=== PATIENT | female | born 1990 | race Caucasian/White ===

== ENCOUNTER 2017-02-23 12:32 | Inpatient (IN) | payer OTHER ==
[2017-02-23] MEDS ORDERED: ROCEPHIN 1 GM in SODIUM CHLORIDE 50 ML IV STA (12:49)
[2017-02-23] MEDS ORDERED: SODIUM CHLORIDE 1,000 ML IV STA (12:49)
[2017-02-23] MEDS ORDERED: SOLU-MEDROL 40 MG IVP STA (12:49)
[2017-02-23] MEDS ORDERED: DUONEB NEB STA (12:49)
[2017-02-23 13:09] LABS: BASOPHILS % (AUTO) 0.4 % (0.0-3.0); EOSINOPHILS # (AUTO) 0.1 K/ul (0.0-0.7); HEMATOCRIT 41.1 % (37.0-47.0); HEMOGLOBIN 14.1 g/dl (12.0-16.0); IMMATURE GRANULOCYTE % (AUTO) 0.4 % (0.0-5.0); LYMPHOCYTES # (AUTO) 1.4 K/uL (0.60-3.4); MEAN CORPUSCULAR HEMOGLOBIN 31.4 pg (27.0-31.0); MEAN CORPUSCULAR HGB CONC 34.3 (31.8-35.4); MEAN CORPUSCULAR VOLUME 91.5 fl (81.0-99.0); MONOCYTES # (AUTO) 0.9 K/uL (0.4-2.0); MONOCYTES % (AUTO) 9.8 (0-10); NEUTROPHILS # (AUTO) 7.1 K/ul (2.0-6.9); NEUTROPHILS % (AUTO) 73.4; PLATELET COUNT 269 10^3/uL (140-440); RED BLOOD COUNT 4.49 10^6/ul (4.20-5.40); WHITE BLOOD COUNT 9.61 K/ul (4.6-10.2)
[2017-02-23] MEDS ORDERED: ROCEPHIN ONE (13:22)
[2017-02-23 13:28] LABS: SERUM PREGNANCY INTERNAL QC INTERNAL QC VALID
[2017-02-23 13:29] LABS: ALBUMIN/GLOBULIN RATIO 1.05; ANION GAP 20.2; BILIRUBIN,TOTAL 0.35 mg/dL (0.00-1.20); BUN/CREATININE RATIO 15.18; CALCIUM 9.4 mg/dL (8.2-10.2); CREATININE 0.79 mg/dL (0.60-1.30); POTASSIUM 4.2 mmol/L (3.5-5.10); TOTAL PROTEIN 7.8 g/dL (6.4-8.2)
--- NOTE | 2017-02-23 14:12 | CT ---
Exam: CT of the chest without intravenous contrast. 3-D MIP reformats were provided for interpreta tion. Comparison: None available. Reason for exam: Productive cough and right chest wall pain. FINDINGS: Image interpretation is limited by the lack of intravenous contrast administration. No pneumothorax or pleural effusion. The heart is not enlarged. The aorta is normal in course and caliber. Patchy airspace opacities. Air bronchograms are seen in the left lower lobe on coronal image 45 and 56. 4 mm nodule in the left lower lobe seen on axial image number 44. No suspicious appearing osteoblastic or osteolytic lesions. No acute fracture or listhesis. Impression: 1. Patchy airspace opacities with air bronchograms in the left lower lobe likely pneumonia and / or atelectasis. 2. 4 mm left lower lobe pulmonary nodule. Recommend follow-up CT evaluation to document resolution of the nodular and consolidative airspace opacities. Report faxed at [id number] hours on 02/23/2017.
--- NOTE | 2017-02-23 14:23 | ED.PDOC ---
General ED Provider: Dr. EBONY BERGER-ER Chief Complaint: Chest Wall Injury/Pain Stated Complaint: im coughing and i dont think im over the pneumonia--im coughing up thick yellow stuff...my ribs hurt from coughing ...im breast feeding Time Seen by Physician: 12:35 Mode of Arrival: Walk-In Information Source: Patient, Family Exam Limitations: No limitations Primary Care Provider: JANET MARTI Nursing and Triage Documentation Reviewed and Agree: Yes Respiratory Complaint Exam - Respiratory Complaint/Exam Onset/Duration: 2 weks Symptoms Are: Still present Timing: Constant Initial Severity: Mild Current Severity: Mild Location: Chest Character: Reports: Productive cough Alleviating: Reports: None Associated Signs and Symptoms: Reports: URI. Denies: Rapid breathing, Dyspnea, Fever, Chills, Chest pain, Pleuritic chest pain, Wheezing, Hemoptysis, Dizziness , Calf pain, Calf swelling, Edema, Nasal congestion, Hoarseness, Sinus discomfort, Vomiting, Sore throat, Weight loss, Decreased oral intake, Increased thirst, Increased appetite, Increased urination History of Healthcare-Acquired Pneumonia: No Related Surgical History: Reports: None Pulmonary Embolism Risk Factors: None Cardiac Risk Factors: Reports: None Pseudomonas Risk Factors: Reports: None Tuberculosis Risk Factors: Reports: None Status Asthmaticus Risk Factors: Reports: None Home Oxygen Use: No Recent Stress Test: No Recent Echo/LV Function: No Current Antibiotic Use: Yes Current Asthma Medication Use: No Respiratory Distress: None Inadequate Respiratory Effort: No Dysphagia Present: No Stridor Present: No JVD Present: No Accessory Muscle Use: No Retractions: Not Present Diminished Breath Sounds: No Sinus Tenderness: None Grunting Respirations: No Kussmaul Respirations: No Differential Diagnoses: Pneumonia, Bronchitis Review of Systems - Review Of Systems Constitutional: Reports: No symptoms Eyes: Reports: No symptoms Ears, Nose, Mouth, Throat: Reports: No symptoms Respiratory: Reports: Cough Cardiac: Reports: No symptoms GI: Reports: No symptoms : Reports: No symptoms Musculoskeletal: Reports: No symptoms Skin: Reports: No symptoms Neurological: Reports: No symptoms Endocrine: Reports: No symptoms Hematologic/Lymphatic: Reports: No symptoms All Other Systems: Reviewed and Negative Past Medical History - Past Medical History Previously Healthy: Yes Endocrine: Reports: None Cardiovascular: Reports: None Respiratory: Reports: None Hematological: Reports: None Gastrointestinal: Reports: None Genitourinary: Reports: None Neuro/Psych: Reports: Migraine Musculoskeletal: Reports: None Cancer: Reports: None Last Menstrual Period: december 2015 - Surgical History General Surgical History: Reports: Unknown - Family History Family History: Reports: Unknown - Social History Smoking Status: Former smoker Hx Substance Use: No Alcohol Screening: Occasionally Physical Exam - Physical Exam Appearance: Well-appearing, No pain distress, Well-nourished Eyes: DAIJA, EOMI, Conjunctiva clear ENT: Ears normal, Nose normal, Oropharynx normal Neck: Supple Respiratory: Crackles, Rhonchi Cardiovascular: RRR, Pulses normal, No rub, No murmur GI/: Soft Musculoskeletal: Normal strength, ROM intact, No edema, No calf tenderness Skin: Warm Neurological: Sensation intact, Motor intact, Reflexes intact, Cranial nerves intact, Alert, Oriented Psychiatric: Affect appropriate Interpretation - Radiology Interpretation Radiology Interpretation By: Radiologist Radiology Results: Positive Exam Interpreted: CT Scan Physician Notification - Case Discussed Physician Notified: dr marti Time of Notification: 14:23 Critical Care Note - Critical Care Note Total Time (mins): 0 Course - Course Hematology/Chemistry: 02/23/17 13:00 02/23/17 13:00 Orders, Labs, Meds: Lab Review 02/23/17 13:00 WBC 9.61 RBC 4.49 Hgb 14.1 Hct 41.1 MCV 91.5 MCH 31.4 H MCHC 34.3 RDW Coeff of Amy 12.6 Plt Count 269 Immature Gran % (Auto) 0.4 Neut % (Auto) 73.4 Lymph % (Auto) 15.0 [place] % (Auto) 9.8 Eos % (Auto) 1.0 Baso % (Auto) 0.4 Immature Gran # (Auto) 0.0 Neut # 7.1 H Lymph # 1.4 [place] # 0.9 Eos # 0.1 Baso # 0.0 D-Dimer (Manual) 380.91 Sodium 144 Potassium 4.2 Chloride 106 Carbon Dioxide 22 Anion Gap 20.2 BUN 12 Creatinine 0.79 Estimated GFR (MDRD) 87.00 BUN/Creatinine Ratio 15.18 Glucose 78 Calcium 9.4 Total Bilirubin 0.35 AST 232 H ALT 212 H Alkaline Phosphatase 166 H Total Protein 7.8 Albumin 4.0 Globulin 3.8 Albumin/Globulin Ratio 1.05 Serum , Qual Negative Orders Category Date Time Status NEBULIZER TREATMENT Stat CARDIO 02/23/17 12:49 Completed ED IV/MEDIPORT/POWERPORT .ONCE EMERGENCY 02/23/17 12:49 Active BLOOD CULTURE Stat LAB 02/23/17 13:00 Received CBC W/ AUTO DIFF Stat LAB 02/23/17 13:00 Completed COMPREHENSIVE METABOLIC PANEL Stat LAB 02/23/17 13:00 Completed D-DIMER Stat LAB 02/23/17 13:00 Completed SERUM Stat LAB 02/23/17 13:00 Completed 0.9 % Sodium Chloride [Saline Flush] MEDS 02/23/17 12:49 Active 1 syr IVF PRN PRN Ceftriaxone Sodium [Rocephin] MEDS 02/23/17 13:22 Discontinued 1 gm .ROUTE .STK-MED ONE Ceftriaxone Sodium [Rocephin] 1 gm MEDS 02/23/17 12:49 Discontinued 0.9 % Sodium Chloride [Sodium Chloride] 50 ml IV ONCE Ipratropium/Albuterol Neb [Duoneb] MEDS 02/23/17 12:49 Discontinued 1 vial NEB ONCE STA Methylprednisolone Sod Succ/Pf [Solu-Medrol 40 mg] MEDS 02/23/17 12:49 Discontinued 40 mg IVP ONCE STA Sodium Chloride 0.9% [Sodium Chloride] 1,000 ml MEDS 02/23/17 12:49 Active IV 100 mls/hr CT CHEST W/O CONTRAST Stat RADS 02/23/17 12:50 Completed Medications Generic Name Dose Route Start Last Admin Trade Name Freq PRN Reason Stop Dose Admin Sodium Chloride 1,000 mls @ 100 mls/hr 02/23/17 12:49 02/23/17 13:46 Sodium Chloride IV 02/23/17 22:48 100 mls/hr .Q10H STA Administration Sodium Chloride 1 syr 02/23/17 12:49 02/23/17 13:38 Saline Flush IVF 1 syr PRN PRN Administration To flush IV Discontinued Medications Generic Name Dose Route Start Last Admin Trade Name Freq PRN Reason Stop Dose Admin Albuterol/Ipratropium 1 vial 02/23/17 12:49 02/23/17 13:25 Duoneb NEB 02/23/17 12:50 1 vial ONCE STA Administration Ceftriaxone Sodium 1 gm/ 50 mls @ 75 mls/hr 02/23/17 12:49 02/23/17 13:46 Sodium Chloride IV 02/23/17 13:28 75 mls/hr ONCE STA Administration Methylprednisolone Sodium Succinate 40 mg 02/23/17 12:49 02/23/17 13:37 Solu-Medrol 40 Mg IVP 02/23/17 12:50 40 mg ONCE STA Administration Vital Signs: Temp Pulse Resp BP Pulse Ox 02/23/17 12:33 98.8 F 104 H 20 117/68 98 Departure - Departure Time of Disposition: 14:23 Disposition: ADMITTED INPATIENT Discharge Problem: Pneumonia Qualifiers: Pneumonia type: due to unspecified organism Laterality: left Lung location: unspecified part of lung Qualifier Code: (J18.9) Pneumonia, unspecified organism Instructions: Pneumonitis (ED) Condition: Good Pt referred to PMD for follow-up: Yes Allergies/Adverse Reactions: Allergies codeine phosphate [From Tylenol-Codeine #3] Adverse Reaction (Verified 02/23/17 12:40) Home Medications: Ambulatory Orders Sertraline HCl [Zoloft] 50 mg PO DIRECTED 02/23/17 Disposition Discussed With: Patient, Family
[2017-02-23] MEDS ORDERED: NORCO 5-325 PO PRN (14:27)
[2017-02-23] MEDS ORDERED: TYLENOL PO PRN (14:28)
[2017-02-23 15:25] VITALS: BMI 27.4
[2017-02-23] MEDS: ZITHROMAX 500 MG in SODIUM CHLORIDE 250 ML IV SCH (16:28)
[2017-02-23] MEDS: XOPENEX 0.63 MG NEB SCH ×2 (17:00→23:09)
[2017-02-23] MEDS ORDERED: ULTRAM PO PRN (18:27)
[2017-02-23] MEDS ORDERED: SOLU-MEDROL 40 MG IVP SCH (21:00)
[2017-02-23] MEDS: ZOLOFT PO SCH (21:22)
[2017-02-23] MEDS ORDERED: ULTRAM ONE (21:30)
[2017-02-23] MEDS ORDERED: TORADOL IVP STA (22:08)
[2017-02-24] MEDS: SODIUM CHLORIDE 1,000 ML IV SCH ×4 (02:08→20:19)
[2017-02-24] MEDS: XOPENEX 0.63 MG NEB SCH ×4 (05:13→23:06)
[2017-02-24 05:21] LABS: BASOPHILS % (AUTO) 0.1 % (0.0-3.0); HEMATOCRIT 36.9 % (37.0-47.0); HEMOGLOBIN 12.6 g/dl (12.0-16.0); IMMATURE GRANULOCYTE % (AUTO) 0.9 % (0.0-5.0); LYMPHOCYTES # (AUTO) 0.8 K/uL (0.60-3.4); MEAN CORPUSCULAR HEMOGLOBIN 31.6 pg (27.0-31.0); MEAN CORPUSCULAR HGB CONC 34.1 (31.8-35.4); MEAN CORPUSCULAR VOLUME 92.5 fl (81.0-99.0); MONOCYTES # (AUTO) 0.3 K/uL (0.4-2.0); NEUTROPHILS # (AUTO) 9.2 K/ul (2.0-6.9); PLATELET COUNT 250 10^3/uL (140-440); RED BLOOD COUNT 3.99 10^6/ul (4.20-5.40); WHITE BLOOD COUNT 10.47 K/ul (4.6-10.2)
[2017-02-24 05:45] LABS: ALBUMIN 3.7 g/dL (3.4-5.0); ALBUMIN/GLOBULIN RATIO 1.06; BILIRUBIN,TOTAL 0.4 mg/dL (0.00-1.20); BUN/CREATININE RATIO 14.06; CALCIUM 8.9 mg/dL (8.2-10.2); CREATININE 0.64 mg/dL (0.60-1.30); TOTAL PROTEIN 7.2 g/dL (6.4-8.2)
[2017-02-24] MEDS ORDERED: SOLU-MEDROL 40 MG IVP SCH (08:16)
[2017-02-24] MEDS: ROCEPHIN 1 GM in SODIUM CHLORIDE 50 ML IV SCH (08:40)
[2017-02-24] MEDS ORDERED: ZOLOFT PO SCH (09:00)
--- NOTE | 2017-02-24 09:31 | PN ---
DATE OF SERVICE: 02/23/17 The patient was seen in the room 115. The was present. REASON FOR HOSPITALIZATION: Pneumonia. HISTORY OF PRESENT ILLNESS: 26-year-old white female came to the emergency room with cough and congestion, shortness of breath, pleuritic type of pain, left-sided. The patient was seen and examined in the ER by ER attending and CT scan of the chest revealed pneumonia on the left lower lobe. The patient is being treated for acute bronchitis and pneumonitis for the past several weeks as an outpatient with some improvement. The patient's condition deteriorated. REVIEW OF SYSTEMS: CONSTITUTIONAL: No night sweats. No fatigue, malaise, lethargy. No fever or chills. HEENT: Eyes: No visual changes. No eye pain. No eye discharge. ENT: No runny nose. No epistaxis. No sinus pain. No sore throat. No odynophagia. No congestion. RESPIRATORY: Cough and congestion. No hemoptysis. CARDIOVASCULAR: No angina symptoms. No CHF symptoms. Left-sided pleuritic pain. No atypical chest pain for CAD. No palpitations. Shortness of breath. GASTROINTESTINAL: No abdominal pain. No nausea or vomiting. No diarrhea or constipation. No hematemesis. No hematochezia. GENITOURINARY: No urgency. No frequency. No dysuria. No hematuria. No obstructive symptoms. No discharge. No pain. No significant abnormal bleeding. MUSCULOSKELETAL: No musculoskeletal pain; no joint swelling. NEUROLOGICAL: No headache. No neck pain. No syncope. No seizures. No dizziness. PSYCHIATRIC: Not anxious. No depression. No suicidal thoughts. No homicidal thoughts. SKIN: No rash. No lesions. No wounds. ENDOCRINE: No unexplained weight loss. No weight gain. HEMATOLOGIC/LYMPHATIC: No anemia. No purpura. No petechiae. No prolonged or excessive bleeding. No palpable lymph nodes. PHYSICAL EXAMINATION: GENERAL: The patient is oriented to time, place and person. VITAL SIGNS: Temperature 98.8, pulse 104, respiratory rate 20, BP 117/68, pulse ox 98%. HEENT: Head normocephalic, atraumatic. Eyes: Extraocular muscles are intact. Pupils are equal, round and reactive to light and accommodation. Ears: No lesions. Nose appeared normal. Throat: No exudate or erythema. NECK: Supple. No JVD, no carotid bruit. No lymphadenopathy or thyromegaly. LUNGS: Decreased breath sounds with mild wheeze lower lobes. Percussion note normal. Chest symmetrical. HEART: S1, S2, no S3. No murmurs. No cyanosis or clubbing. No ascites. Pulses: Dorsalis pedis and posterior tibial pulses +1 to +2 both sides. ABDOMEN: Soft. Nontender. Bowel sounds active. No CVA tenderness. No mass felt. EXTREMITIES: No edema. Full range of motion of all extremities, equal. NEUROLOGIC: No focal deficit. Cranial nerves II through XII are grossly intact. No headache, no double vision or headache. SKIN: Not dry. Intact. Turgor - normal. LYMPHATIC: No palpable lymph nodes/no lymphedema. MUSCULOSKELETAL: Normal joints with no swelling. Muscle tone is normal. ASSESSMENT: 1. PNEUMONIA, LEFT-SIDED 2. LEFT-SIDED PLEURITIC PAIN 3. SMOKING PLAN: 1. IV antibiotics, Rocephin and Zithromax, IV fluids 2. The patient has 4 mm left lower lobe pulmonary nodule. Explained about this and would be followed as an outpatient. 3. The patient is so will have to be careful about medications. TIME SPENT: More than 30 minutes. CONDITION: Stable. Plan and coordination of the patient's care discussed in the presence of nurse. REESE
[2017-02-24] MEDS: ZITHROMAX 500 MG in SODIUM CHLORIDE 250 ML IV SCH (10:14)
--- NOTE | 2017-02-24 10:17 | PCM.PROG ---
Attending Provider: ATTENDING PROVIDER: Dr. JANET TIRADO DATE OF SERVICE: 02/24/17 SUBJECTIVE: This 26 year old WHITE/ F was hospitalized 02/23/17. The patient is seen with Chelsea, Nurse Practitioner. The patient is alert, lying in bed. The child is in the room with the patient. The patient is coughing with productive cough. No fever. The patient has elevated liver enzymes, will do ultrasound. REVIEW OF SYSTEMS: CONSTITUTIONAL: No night sweats. No fatigue, malaise, lethargy. No fever or chills. HEENT: Eyes: No visual changes. No eye pain. No eye discharge. ENT: No runny nose. No epistaxis. No sinus pain. No odynophagia. No congestion. RESPIRATORY: Cough, productive. No hemoptysis. CARDIOVASCULAR: No angina symptoms. No CHF symptoms. No atypical chest pain for CAD. No palpitations. No shortness of breath. GASTROINTESTINAL: No abdominal pain. No nausea or vomiting. No diarrhea or constipation. No hematemesis. No hematochezia. GENITOURINARY: No urgency. No frequency. No dysuria. No hematuria. No obstructive symptoms. No discharge. No pain. No significant abnormal bleeding. MUSCULOSKELETAL: No musculoskeletal pain; no joint swelling. NEUROLOGICAL: Awake, alert, oriented to time, place and person. No headache. No neck pain. No syncope. No seizures. No dizziness. PSYCHIATRIC: Not anxious. No depression. No suicidal thoughts. No homicidal thoughts. SKIN: No rash. No lesions. No wounds. ENDOCRINE: No unexplained weight loss. No weight gain. HEMATOLOGIC/LYMPHATIC: No anemia. No purpura. No petechiae. No prolonged or excessive bleeding. No palpable lymph nodes. PHYSICAL EXAMINATION: GENERAL: The patient is awake, alert and oriented, sitting in bed in no distress. VITAL SIGNS: Temperature 98.3 F, Pulse 84, Respiratory Rate 16, BP 101/61, Pulse Ox 96% HEENT: Head normocephalic, atraumatic. Eyes: Extraocular muscles are intact. Pupils are equal, round and reactive to light and accommodation. Ears: No lesions. Nose appeared normal. Throat: No exudate or erythema. NECK: Supple. No JVD, no carotid bruit. No lymphadenopathy or thyromegaly. LUNGS: Decreased lung sounds left lower lobe. Percussion note normal. Chest symmetrical. HEART: S1, S2, no S3. No murmurs. No cyanosis or clubbing. No ascites. Pulses: Dorsalis pedis and posterior tibial pulses +1 to +2 both sides. ABDOMEN: Soft. Non-tender. Bowel sounds active. No CVA tenderness. No mass felt. EXTREMITIES: No edema. Full range of motion of all extremities, equal. NEUROLOGIC: No focal deficit. Cranial nerves II through XII are grossly intact. No headache, no double vision or headache. SKIN: Not dry. Intact. Turgor-normal. LYMPHATIC: No palpable lymph nodes/no lymphedema. MUSCULOSKELETAL: Normal joints with no swelling. Muscle tone is normal. LAB REVIEW: 02/24/17 05:00 02/24/17 05:00 02/24/17 05:00: WBC 10.47 H, RBC 3.99 L, Hgb 12.6, Hct 36.9 L, MCV 92.5, MCH 31.6 H, MCHC 34.1, RDW Coeff of Amy 12.5, Plt Count 250, Immature Gran % (Auto) 0.9, Neut % (Auto) 88.0, Lymph % (Auto) 8.0 L, [place] % (Auto) 3.0, Eos % (Auto) 0.0, Baso % (Auto) 0.1, Immature Gran # (Auto) 0.1, Neut # 9.2 H, Lymph # 0.8, [place] # 0.3 L, Eos # 0.0, Baso # 0.0, Sodium 141, Potassium 4.0, Chloride 109 H, Carbon Dioxide 19 L, Anion Gap 17.0, BUN 9, Creatinine 0.64, Estimated GFR (MDRD ) 110.00, BUN/Creatinine Ratio 14.06, Glucose 117 H, Calcium 8.9, Total Bilirubin 0.40, AST 123 H D, ALT 191 H, Alkaline Phosphatase 151 H, Total Protein 7.2, Albumin 3.7, Globulin 3.5, Albumin/Globulin Ratio 1.06 ASSESSMENT: 1. Left lower lobe pneumonia 2. Elevated liver function PLAN: 1. Ultrasound right upper quadrant and liver 2. Switch to p.o. Prednisone 10 mg p.o. b.i..d. after IV Solu-Medrol today due to breast feeding. 3. Safety of medications with breast feeding reviewed and discussed in detail with the patient. The patient voiced understanding and is in agreement. Plan and coordination of the patient's care discussed in the presence of Special Education Teaching Assistant and nurse. CONDITION: Stable SCRIBED BY: TAHIRA SAHA Aircraft Engine Dismantler scribed while in presence of service performed by Dr. JANET TIRADO/CHELSEA FIGUEROA APRN on 02/24/17 ([id number])
[2017-02-24] MEDS: ZOLOFT PO SCH ×2 (11:35→20:15)
[2017-02-24] MEDS: NORCO 5-325 PO PRN ×2 (12:17→18:00)
--- NOTE | 2017-02-24 12:53 | US ---
EXAM: Abdominal ultrasound limited HISTORY: Elevated transaminase COMPARISON: None TECHNIQUE: Sonographic and limited Doppler evaluation of the right upper quadrant was performed. FINDINGS: The liver is normal in echogenicity and measures 14.8 cm. The portal vein is patent. Th e gallbladder demonstrates no stones or sludge. The gallbladder wall measures 0.2 cm in thickness. Common bile duct is unremarkable and measures 0.3 cm in diameter. The pancreas is unremarkable in a ppearance. The right kidney measures 9.8 x 4.3 x 4.6 cm with cortical thickness of 1.2 cm. IMPRESSION: No acute intra-abdominal abnormality to account for patient's symptoms.
[2017-02-24] MEDS: PREDNISONE PO SCH (18:00)
[2017-02-25] MEDS: XOPENEX 0.63 MG NEB SCH ×2 (05:15→11:14)
[2017-02-25 05:21] LABS: BASOPHILS % (AUTO) 0.3 % (0.0-3.0); HEMATOCRIT 36.6 % (37.0-47.0); IMMATURE GRANULOCYTE % (AUTO) 0.6 % (0.0-5.0); LYMPHOCYTES # (AUTO) 1.9 K/uL (0.60-3.4); LYMPHOCYTES % (AUTO) 16.2 (10.0-50.0); MEAN CORPUSCULAR HEMOGLOBIN 31.3 pg (27.0-31.0); MEAN CORPUSCULAR HGB CONC 32.8 (31.8-35.4); MEAN CORPUSCULAR VOLUME 95.6 fl (81.0-99.0); MONOCYTES # (AUTO) 0.8 K/uL (0.4-2.0); MONOCYTES % (AUTO) 6.6 (0-10); NEUTROPHILS # (AUTO) 9.1 K/ul (2.0-6.9); NEUTROPHILS % (AUTO) 76.3; PLATELET COUNT 235 10^3/uL (140-440); RED BLOOD COUNT 3.83 10^6/ul (4.20-5.40); WHITE BLOOD COUNT 11.88 K/ul (4.6-10.2)
[2017-02-25 05:47] LABS: ALBUMIN 3.6 g/dL (3.4-5.0); ALBUMIN/GLOBULIN RATIO 1.16; ANION GAP 16.2; BILIRUBIN,TOTAL 0.34 mg/dL (0.00-1.20); BUN/CREATININE RATIO 13.23; CREATININE 0.68 mg/dL (0.60-1.30); POTASSIUM 4.2 mmol/L (3.5-5.10); TOTAL PROTEIN 6.7 g/dL (6.4-8.2)
[2017-02-25] MEDS: NORCO 5-325 PO PRN (07:56)
[2017-02-25] MEDS: ROCEPHIN 1 GM in SODIUM CHLORIDE 50 ML IV SCH (08:19)
[2017-02-25] MEDS: PREDNISONE PO SCH (08:20)
[2017-02-25] MEDS: ZOLOFT PO SCH (08:20)
[2017-02-25] MEDS: ZITHROMAX 500 MG in SODIUM CHLORIDE 250 ML IV SCH (09:33)
--- NOTE | 2017-02-25 09:37 | PCM.PROG ---
Attending Provider: ATTENDING PROVIDER: Dr. JANET TIRADO DATE OF SERVICE: 02/25/17 SUBJECTIVE: This 26 year old WHITE/ F was hospitalized 02/23/17. The patient is seen with Chelsea, Nurse Practitioner. She is alert, lying in bed coughing less. No fever. She has been eating well. She states she is ready to go home. REVIEW OF SYSTEMS: CONSTITUTIONAL: No night sweats. No fatigue, malaise, lethargy. No fever or chills. HEENT: Eyes: No visual changes. No eye pain. No eye discharge. ENT: No runny nose. No epistaxis. No sinus pain. No odynophagia. No congestion. RESPIRATORY: Positive for cough. No congestion. No hemoptysis. CARDIOVASCULAR: No angina symptoms. No CHF symptoms. No atypical chest pain for CAD. No palpitations. No shortness of breath. GASTROINTESTINAL: No abdominal pain. No nausea or vomiting. No diarrhea or constipation. No hematemesis. No hematochezia. GENITOURINARY: No urgency. No frequency. No dysuria. No hematuria. No obstructive symptoms. No discharge. No pain. No significant abnormal bleeding. MUSCULOSKELETAL: No musculoskeletal pain; no joint swelling. NEUROLOGICAL: Awake, alert, oriented to time, place and person. No headache. No neck pain. No syncope. No seizures. No dizziness. PSYCHIATRIC: Not anxious. No depression. No suicidal thoughts. No homicidal thoughts. SKIN: No rash. No lesions. No wounds. ENDOCRINE: No unexplained weight loss. No weight gain. HEMATOLOGIC/LYMPHATIC: No anemia. No purpura. No petechiae. No prolonged or excessive bleeding. No palpable lymph nodes. PHYSICAL EXAMINATION: GENERAL: The patient is awake, alert and oriented, lying in bed in no distress. VITAL SIGNS: Temperature 97.7 F, Pulse 62, Respiratory Rate 16, BP 107/69, Pulse Ox 98% HEENT: Head normocephalic, atraumatic. Eyes: Extraocular muscles are intact. Pupils are equal, round and reactive to light and accommodation. Ears: No lesions. Nose appeared normal. Throat: No exudate or erythema. NECK: Supple. No JVD, no carotid bruit. No lymphadenopathy or thyromegaly. LUNGS: Diminished breath sounds left lower lobe. Percussion note normal. Chest symmetrical. HEART: S1, S2, no S3. No murmurs. No cyanosis or clubbing. No ascites. Pulses: Dorsalis pedis and posterior tibial pulses +1 to +2 both sides. ABDOMEN: Soft. Non-tender. Bowel sounds active. No CVA tenderness. No mass felt. EXTREMITIES: No edema. Full range of motion of all extremities, equal. NEUROLOGIC: No focal deficit. Cranial nerves II through XII are grossly intact. No headache, no double vision or headache. SKIN: Not dry. Intact. Turgor-normal. LYMPHATIC: No palpable lymph nodes/no lymphedema. MUSCULOSKELETAL: Normal joints with no swelling. Muscle tone is normal. LAB REVIEW: 02/25/17 04:10 02/25/17 04:10 02/25/17 04:10: WBC 11.88 H, RBC 3.83 L, Hgb 12.0, Hct 36.6 L, MCV 95.6, MCH 31.3 H, MCHC 32.8, RDW Coeff of Amy 12.9, Plt Count 235, Immature Gran % (Auto) 0.6, Neut % (Auto) 76.3, Lymph % (Auto) 16.2, [place] % (Auto) 6.6, Eos % (Auto) 0.0, Baso % (Auto) 0.3, Immature Gran # (Auto) 0.1, Neut # 9.1 H, Lymph # 1.9, [place] # 0.8, Eos # 0.0, Baso # 0.0, Sodium 144, Potassium 4.2, Chloride 109 H, Carbon Dioxide 23, Anion Gap 16.2, BUN 9, Creatinine 0.68, Estimated GFR (MDRD) 103.00, BUN/Creatinine Ratio 13.23, Glucose 89, Calcium 9.0, Total Bilirubin 0.34, AST 38 H D, ALT 115 H D, Alkaline Phosphatase 122 H D, Total Protein 6.7, Albumin 3.6, Globulin 3.1, Albumin/Globulin Ratio 1.16 ASSESSMENT: 1. Left lower lobe pneumonia, improving 2. Elevated liver function, improving 3. Left pulmonary nodule per CT scan PLAN: 1. Discharge home today. 2. Continue Zithromax 250 mg p.o. for three more days. 3. Albuterol q.4 to 6 hr as needed. 4. Continue Prednisone 10 mg daily for 3 days. 5. Will see the patient in the office in one week. 6. CT scan of chest with contrast in one week. Plan and coordination of the patient's care discussed in the presence of Fish Rod Maker and nurse. CONDITION: Stable SCRIBED BY: Radha PASTRANAist scribed while in presence of service performed by Dr. JANET TIRADO/CHELSEA FIGUEROA APRN on 02/25/17 ([id number])
[2017-02-25 10:21] VITALS: BP 118/81; TEMP 97.9
--- NOTE | 2017-02-25 10:32 | CM.DICTOOL ---
ADMISSION: 02/23/17 14:39 DISCHARGE: 02/25/17 DATE OF SERVICE: 02/25/17 FINAL DIAGNOSIS COMMUNITY ACQUIRED PNEUMONIA SINUSITIS CHRONIC LEFT ORBITAL BLOWOUT FRACTURE W/O EXTRAOCCULAR MUSCLE ENTRAPMENT (CT 08/13) ANXIETY MIGRAINE HEADACHES LAST VITALS Temp Pulse Resp BP Pulse Ox 97.7 F 62 16 107/69 98 02/25/17 06:00 02/25/17 06:00 02/25/17 06:00 02/25/17 06:00 02/25/17 06:00 ACTIVE MEDICATIONS Azithromycin 250 mg PO DAILY WITH FOOD X 3 DAYS JENSEN (NEW PRESCRIPTION) Stop: 02/25/17 12:00 Last Admin: 02/25/17 09:33 Dose: 125 mls/hr Prednisone (Prednisone) 10 mg PO DAILYWM X 3 DAYS JENSEN (NEW PRESCRIPTION) Last Admin: 02/25/17 08:20 Dose: 10 mg Sertraline HCl (Zoloft) 50 mg PO BEDTIME JENSEN Last Admin: 02/24/17 20:15 Dose: 50 mg Sertraline HCl (Zoloft) 100 mg PO DAILY JENSEN Last Admin: 02/25/17 08:20 Dose: 100 mg ALLERGIES codeine phosphate [From Tylenol-Codeine #3] Adverse Reaction (Verified 02/23/17 12:40) NEW PRESCRIPTIONS: PREDNISONE 10 MG, TAKE ONE TABLET BY MOUTH DAILY WITH FOOD FOR 3 DAYS ONLY ZITHROMAX 250 MG, TAKE ONE TABLET BY MOUTH DAILY FOR 3 DAYS ONLY ALBUTEROL 0.083/3 ML, TAKE ONE BREATHING TREATMENT EVERY 6 HOURS FOR 1 MONTH SMOKING: FORMER SMOKER NONE NOW DISEASE SPECIFIC EDUCATION: COMMUNITY ACQUIRED PNEUMONIA HOME MEDICATIONS NEW PRESCRIPTIONS AND THE EFFECTS ON BREAST FEEDING FOLLOW UP NEBULIZER USE LAB REVIEW: 02/25/17 04:10 02/25/17 04:10 02/25/17 04:10: WBC 11.88 H, RBC 3.83 L, Hgb 12.0, Hct 36.6 L, MCV 95.6, MCH 31.3 H, MCHC 32.8, RDW Coeff of Amy 12.9, Plt Count 235, Immature Gran % (Auto) 0.6, Neut % (Auto) 76.3, Lymph % (Auto) 16.2, Storey % (Auto) 6.6, Eos % (Auto) 0.0, Baso % (Auto) 0.3, Immature Gran # (Auto) 0.1, Neut # 9.1 H, Lymph # 1.9, Storey # 0.8, Eos # 0.0, Baso # 0.0, Sodium 144, Potassium 4.2, Chloride 109 H, Carbon Dioxide 23, Anion Gap 16.2, BUN 9, Creatinine 0.68, Estimated GFR (MDRD) 103.00, BUN/Creatinine Ratio 13.23, Glucose 89, Calcium 9.0, Total Bilirubin 0.34, AST 38 H D, ALT 115 H D, Alkaline Phosphatase 122 H D, Total Protein 6.7, Albumin 3.6, Globulin 3.1, Albumin/Globulin Ratio 1.16 PLAN: DISCHARGE HOME TODAY RETURN TO SEE DR. TIRADO ON 03/06/17 AT 1:45 PM RETURN TO [facility] FOR A CT OF THE CHEST ON 03/04/17 10 AM RESUME YOUR HOME MEDICATIONS PER LIST PROVIDED BY THE NURSING STAFF [facility] WILL DELIVER YOUR NEBULIZER AND MEDICATIONS TO YOUR HOME AND PROVIDE INSTRUCTIONS FOR USE NEW PRESCRIPTIONS: PREDNISONE 10 MG, TAKE ONE TABLET BY MOUTH DAILY WITH FOOD FOR 3 DAYS ONLY ZITHROMAX 250 MG, TAKE ONE TABLET BY MOUTH DAILY FOR 3 DAYS ONLY ALBUTEROL 0.083/3 ML, TAKE ONE BREATHING TREATMENT EVERY 6 HOURS FOR 1 MONTH DIET: HEALTHY HEART ACTIVITY: GET PLENTY OF REST AT HOME. GRADUALLY INCREASE YOUR ACTIVITY LEVEL ACCORDING TO YOUR TOLERATION SUMMARY: THE PATIENT IS ALERT AND ORIENTED X3. SHE CURRENTLY RESIDES AT HOME WITH HER SPOUSE AND FAMILY. SHE HAS BEEN INDEPENDENT WITH [employer] AND HAS REQUIRED NO DME , HOME HEALTH OR HOMEMAKING SERVICES. SHE DESIRES TO RETURN TO HER HOME AT DISCHARGE. SHE WILL RECEIVE A NEBULIZER AND ALBUTEROL MEDICATION FOR BREATHING TREATMENTS FROM [facility]. WE HAVE DISCUSSED THE NEED AND USE OF THE NEBULIZER/ BREATHING TREATMENTS. MS. BERNAL HAS VERBALIZED HER INTENT TO COMPLY WITH USE. HER SKIN TURGOR IS GOOD AND IS INTACT WITH THE EXCEPTION OF AN OPEN AREA JUST BELOW HER RIGHT CHEEK. SHE HAS NO DECUBITUS ULCERS. HER HYDRATION STATUS IS EXCELLENT. SHE IS AFEBRILE. VITAL SIGNS ARE STABLE AND WELL WITHIN ACCEPTABLE RANGES. THE PATIENT IS AWARE AND AGREEABLE FOR DISCHARGE TODAY. JOSEPH FIGUEROA APRN JANET TIRADO M.D.
--- NOTE | 2017-02-25 11:00 | PN ---
DATE OF SERVICE: 02/24/17 SUBJECTIVE: The patient was seen with Nurse Practitioner. The patient is a 26 year old white female hospitalized with pneumonia. The patient's condition has improved and she is much less wheezing, no cough, no congestion, no fever and no chills. PHYSICAL EXAMINATION: GENERAL: The patient is VITAL SIGNS: Temperature 98.3, pulse 84, respiratory rate 16, blood pressure 100/60 and pulse ox 96%. HEENT: Head normocephalic, atraumatic. Eyes: Extraocular muscles are intact. Pupils are equal, round and reactive to light and accommodation. Ears: No lesions. Nose appeared normal. Throat: No exudate or erythema. NECK: Supple. No JVD, no carotid bruit. No lymphadenopathy or thyromegaly. LUNGS:Decreased breath sounds but clear with mild wheeze. Percussion note normal. Chest symmetrical. HEART: S1, S2, no S3. No murmurs. No cyanosis or clubbing. No ascites. Pulses: Dorsalis pedis and posterior tibial pulses +1 to +2 both sides. ABDOMEN: Soft. Nontender. Bowel sounds active. No CVA tenderness. No mass felt. EXTREMITIES: No edema. Full range of motion of all extremities, equal. NEUROLOGIC: No focal deficit. Cranial nerves II through XII are grossly intact. No headache, no double vision or headache. SKIN: Not dry. Intact. Turgor - normal. LYMPHATIC: No palpable lymph nodes/no lymphedema. MUSCULOSKELETAL: Normal joints with no swelling. Muscle tone is normal. ASSESSMENT: 1. Pneumonia seems to be resolving 2. Abnormal AST ALT, continue to follow that. PLAN: 1. Advised to quit drinking which patient says that she's not 2. Advised to avoid Tylenol and pain medication, the patient is 3. Continue Rocephin and Zithromax TIME SPENT: More than 30 minutes. Plan and coordination of the patient's care discussed in the presence of nurse. REESE
--- NOTE | 2017-02-26 09:00 | PN ---
DATE OF SERVICE: 02/25/17 SUBJECTIVE: The patient is a 26 year old white female seen with the Nurse Practitioner. The patient was hospitalized with pneumonia. The patient's condition has improved remarkably and she is afebrile and not coughing much at all. Advised to quit smoking and counseling done for smoking. PHYSICAL EXAMINATION: VITAL SIGNS: Temperature 97.7, pulse 62, respiratory 16, blood pressure 107/69 and pulse ox 98%. HEENT: Head normocephalic, atraumatic. Eyes: Extraocular muscles are intact. Pupils are equal, round and reactive to light and accommodation. Ears: No lesions. Nose appeared normal. Throat: No exudate or erythema. NECK: Supple. No JVD, no carotid bruit. No lymphadenopathy or thyromegaly. LUNGS: Decreased breath sounds. Percussion note normal. Chest symmetrical. HEART: S1, S2, no S3. No murmurs. No cyanosis or clubbing. No ascites. Pulses: Dorsalis pedis and posterior tibial pulses +1 to +2 both sides. ABDOMEN: Soft. Nontender. Bowel sounds active. No CVA tenderness. No mass felt. EXTREMITIES: No edema. Full range of motion of all extremities, equal. NEUROLOGIC: No focal deficit. Cranial nerves II through XII are grossly intact. No headache, no double vision or headache. SKIN: Not dry. Intact. Turgor - normal. LYMPHATIC: No palpable lymph nodes/no lymphedema. MUSCULOSKELETAL: Normal joints with no swelling. Muscle tone is normal. ASSESSMENT: 1. Pneumonia, clinically seems to have resolved PLAN: 1. Discharge the patient home on Albuterol, Zithromax and Prednisone CONDITION: Stable TIME SPENT: More than 30 minutes. Plan and coordination of the patient's care discussed in the presence of nurse. REESE
--- NOTE | 2017-03-07 12:46 | HP ---
DATE OF SERVICE: 02/23/17 HISTORY OF PRESENT ILLNESS: This is a 26-year-old female who was seen in our office approximately two weeks ago and placed on Keflex and p.o. steroids for cough and congestion. She was afebrile. She came to the emergency room at [facility] on 02/23/17 complaining of coughing and with thick yellow sputum and pain with coughing in her ribs. Upon arrival in the ER she was afebrile. She was subsequently admitted to the surgical floor after a chest x-ray revealed she had left lower lobe pneumonia. She stated that she had not improved at all after p.o. antibiotics, p.o. Keflex and p.o. Prednisone. PAST MEDICAL HISTORY: 1. Recent acute bronchitis 2. Failed p.o. medications 3. Previous history of smoker 4. Depression controlled by Zoloft 5. Generalized anxiety disorder 6. History of abnormal liver function SOCIAL HISTORY: The patient lives with her and her four children, the youngest of which is 6 months old and is with her. She denies any alcohol or illicit drug use. Again, she is a former smoker. REVIEW OF SYSTEMS: CONSTITUTIONAL: Weakness. No night sweats. No fever or chills. HEENT: Eyes: No visual changes. No eye pain. No eye discharge. ENT: No runny nose. No epistaxis. No sinus pain. No sore throat. No odynophagia. No ear pain. No congestion. RESPIRATORY: Productive cough, pain with coughing. No shortness of breath. No hemoptysis. CARDIOVASCULAR: No angina symptoms. No CHF symptoms. No atypical chest pain for CAD. No palpitations. No orthopnea. GASTROINTESTINAL: No abdominal pain. No nausea or vomiting. No diarrhea or constipation. No hematemesis. No hematochezia. GENITOURINARY: No urgency. No frequency. No dysuria. No hematuria. No obstructive symptoms. No discharge. No pain. No significant abnormal bleeding. MUSCULOSKELETAL: Rib pain with coughing otherwise unremarkable. NEUROLOGICAL: No confusion. Alert and oriented. No headache. No neck pain. No syncope. No seizures. No dizziness. PSYCHIATRIC: Appropriate affect. Not anxious. No depression. No suicidal thoughts. No homicidal thoughts. SKIN: No rash. No lesions. No wounds. ENDOCRINE: No unexplained weight loss. No weight gain. HEMATOLOGIC/LYMPHATIC: No anemia. No purpura. No petechiae. No prolonged or excessive bleeding. No palpable lymph nodes. MEDICATIONS: (HOME) 1. Sertraline (Zoloft) 50 mg p.o. bedtime 2. Sertraline (Zoloft) 100 mg p.o. daily ALLERGIES: CODEINE PHOSPHATE PHYSICAL EXAMINATION: APPEARANCE: Well-appearing in no acute distress. Well-nourished. VITAL SIGNS: HEENT: Head normocephalic, atraumatic. Eyes: Extraocular muscles are intact. Pupils are equal, round and reactive to light and accommodation. Conjunctivae clear. Ears: No lesions. Nose appeared normal. Throat: No exudate or erythema. NECK: Supple. No JVD, no carotid bruit. No lymphadenopathy or thyromegaly. LUNGS: Diminished bilateral breath sounds with crackles in left lower lobe.Clear to auscultation. Percussion note normal. Chest symmetrical. HEART: Regular rate and rhythm. No murmurs, clicks or rubs. S1, S2, no S3. No cyanosis or clubbing. No ascites. Pulses: Dorsalis pedis and posterior tibial pulses +1 to +2 both sides. ABDOMEN: Soft. Nontender. Bowel sounds active times four quadrants. No CVA tenderness. No mass felt. EXTREMITIES: No edema. Full range of motion of all extremities, equal. NEUROLOGIC: Alert and oriented times three. No focal deficit. Cranial nerves II through XII are grossly intact. No headache, no double vision or headache. SKIN: Warm and intact. Turgor - normal. LYMPHATIC: No palpable lymph nodes/no lymphedema. MUSCULOSKELETAL: Full range of motion, no edema. LABORATORY: CT scan which was positive for left lower lobe pneumonia. White blood count 9.6 , hemoglobin 14.1, hematocrit 41.1, platelets 269. Sodium 144, potassium 4.2, BUN 12, creatinine 0.79. D. dimer 380. AST 232, ALT 212, alkaline phosphatase 166. ASSESSMENT: 1. ACUTE LEFT LOWER LOBE PNEUMONIA 2. ABNORMAL LIVER FUNCTION 3. CHEST WALL PAIN WITH COUGHING PLAN: 1. Will admit to the floor with routine telemetry orders. 2. Place on IV Rocephin as well as Azithromycin 500 mg IV. 3. Will do Duonebs q.6hr. 4. IV fluids. 5. Solu-Medrol 40 mg q.6hr. 6. Continue home medication of Zoloft 100 mg. 7. CBC, CMP daily. 8. Will repeat liver enzymes tomorrow. 9. The patient states that she is breast feeding and would like to keep the baby with her. She declines a crib in her room; SIDS prevention of course has been discussed with back to sleep and risk of co-sleeping. TIME SPENT: More than 70 minutes. MTDD
--- NOTE | 2017-03-10 13:08 | DS ---
DATE OF SERVICE: 02/25/17 FINAL DIAGNOSIS: 1. COMMUNITY ACQUIRED LEFT LOWER LOBE PNEUMONIA WITH POSSIBLE PULMONARY NODULE , ELEVATED LIVER FUNCTION 2. SINUSITIS 3. CHRONIC LEFT ORBITAL BLOWOUT FRACTURE WITHOUT EXTRAOCULAR MUSCLE ENTRAPMENT (CT 08/13/15 4. ANXIETY 5. MIGRAINE HEADACHES DISCHARGE INSTRUCTIONS: 1. Followup appointment to see Dr. Rosado on 03/06/17 at 1:45 p.m. 2. Return to [facility] outpatient for a CT of chest on 03/04/17 at 10 a.m. 3. [facility] will deliver your nebulizer and medications to your home and provide instructions for use. MEDICATIONS AT DISCHARGE: 1. Sertraline (Zoloft) 50 mg p.o. bedtime 2. Sertraline (Zolfot) 100 mg p.o. daily NEW PRESCRIPTIONS: 1. Prednisone 10 mg p.o. daily with meals 2. Azithromycin (Zithromax) 250 mg p.o. daily 3. Albuterol one vial neb RT q.6hr DIET INSTRUCTIONS: Heart Healthy ACTIVITY: Get plenty of rest at home. Gradually increase your activity level according to your toleration. SMOKING: Former smoker - none now DISEASE SPECIFIC EDUCATION: 1. Community acquired pneumonia 2. Home medications 3. New prescriptions and the effects on breast feeding 4. Follow up 5. Nebulizer use HOSPITAL COURSE: This is a 26-year-old female who presented to the emergency room on 02/23/17 complaining of worsening cough and congestion. She had been previously seen in our office approximately 2 weeks before and had been placed on oral Keflex and Prednisone with failed treatment. She was afebrile upon arrival in the Emergency Room. A CT scan revealed that she had left lower lobe pneumonia. She was subsequently admitted, placed on IV Zithromax, IV Rocephin, IV Solu-Medrol and given Duoneb breathing treatments every six hours. CT scan also revealed a 4 mm nodule in the left lower lobe that could be infectious and recommended a repeat CT scan. We will schedule that for next week to give the time for pneumonia to resolved. Also, upon arrival in the Emergency Room, a lab test revealed that she had increased liver function, AST was 232, ALT 212, alkaline phosphatase 166. The patient does have a history of this and has presented in the office with this as well. Over the course of her hospital stay with IV fluids and medications, her liver function steadily improved. We did however do an ultrasound of her liver yesterday on 02/24 which was normal. We also did the right upper quadrant which was normal too, showed no gallstones and no sludge in her gallbladder. Upon discharge today, her liver enzymes are significantly improved from admission, AST 38, ALT 115, alkaline phosphatase 122. Her vital signs were stable. Today she was afebrile with a temperature of 97.7, pulse 62, respirations 16, BP 107/69, pulse ox 98% on room air. She reported that her cough had improved, she had been eating 100% of her meals and that she would like to go home today. Due to significant improvement in her cough after being put on Zithromax and Prednisone, we will discharge her home to finish her five day course of Zithromax and she will be on 250 mg p.o. daily for the next three days along with Prednisone 10 mg daily for the next three days. An order form for nebulizer machine was also given in order for her to do breathing treatments every six hours as neded for the next couple of weeks until the cough is done. To followup on the nodules, which may be a result of the infection, although she does have a history as a previous smoker, she is scheduled for a repeat CT of the chest on 03/04 at 10 a.m. We will then see her in our office as a followup on 03/06 at 1:45 p.m. She is instructed to continue with increased rest and fluids at home. TIME SPENT: More than 60 minutes. SANCHOD
== END 2017-02-25 12:45 | disposition home or self-care (01) | DRG 195 ==
LOC: ED 12:32 → MEDSURG B 14:39
PROVIDERS: ADMIT Internal Medicine; ATTEND Internal Medicine
DX: J18.1 Lobar pneumonia, unspecified organism (principal); R91.1 Solitary pulmonary nodule; R79.89 Other specified abnormal findings of blood chemistry; J32.9 Chronic sinusitis, unspecified; F41.9 Anxiety disorder, unspecified; G43.909 Migraine, unspecified, not intractable, without status migrainosus; R07.89 Other chest pain; R05 Cough; Z87.891 Personal history of nicotine dependence; Z79.899 Other long term (current) drug therapy
CPT/HCPCS: 36415; 80053; 84703; 85025; 85379; 87040; 94640; 96361; 96365; 96375; 99223; 99232; 99239; 99284

== ENCOUNTER 2017-03-04 09:46 | Outpatient (CLI) | payer OTHER ==
--- NOTE | 2017-03-04 10:19 | CT ---
EXAM: CT of the chest without contrast History: Left lower lobe pneumonia, follow-up Comparison: Chest CT 02/23/2017 Technique: Multiplanar CT images through the thorax were obtained without the administration of IV contrast Findings: Heart size is normal. No pericardial effusion. Great vessels are unremarkable. No path ologically enlarged thoracic lymph nodes. No pleural fluid and no pneumothorax. No consolidation. Resolved left lower lobe micronodular infiltrate. Subsegmental atelectasis seen within the left lo wer lobe. No suspicious lung masses or lung nodules. Within the visualized upper abdomen, no acute findings. No acute osseous abnormalities. Impression: 1. No evidence for pneumonia. 2. Resolved left lower lobe nodular infiltrate.
== END 2017-03-04 09:47 | disposition home or self-care (01) ==
LOC: RAD 09:46
PROVIDERS: ATTEND Internal Medicine
DX: R91.1 Solitary pulmonary nodule (principal); J18.9 Pneumonia, unspecified organism

== ENCOUNTER 2018-08-03 15:27 | Emergency (ER) | payer OTHER ==
[2018-08-03 15:31] VITALS: TEMP 98.7; BMI 27.2
[2018-08-03 15:33] VITALS: BP 133/89
[2018-08-03 16:35] LABS: URINE PREGNANCY TEST NEGATIVE (NEGATIVE)
--- NOTE | 2018-08-03 17:24 | ED.PDOC ---
General ED Provider: Dr. SKYLER SHABAZZ Chief Complaint: Psychiatric Complaint Stated Complaint: anxiety Time Seen by Physician: 15:30 (seen withmarci) Mode of Arrival: Walk-In Information Source: Patient Exam Limitations: No limitations Primary Care Provider: JANET TIRADO Nursing and Triage Documentation Reviewed and Agree: Yes Does patient meet sepsis criteria?: No System Inflammatory Response Syndrome: Not Applicable Sepsis Protocol: For patient's 13 years and over: Temp is 96.8 and below OR 101 and greater Pulse >90 BPM Resp >20/minute Acutely Altered Mental Status Are patient's symptoms suggestive of a new infection, such as: -Pneumonia -Skin, Soft Tissue -Endocarditis -UTI -Bone, Joint Infection -Implantable Device -Acute Abdominal Infection -Wound Infection -Meningitis -Blood Stream Catheter Infection -Unknown Psychological Complaint Exam - Psychiatric Complaint/Exam Patient Complains Of: Present: Other (anxiety). Absent: Depression, Suicidal thoughts, Suicidal gestures Onset/Duration: today Symptoms Are: Still present Timing: Intermittent Episodes Lasting: Weeks Initial Severity: Mild Current Severity: Mild Character: Present: Anxious Aggravating: Reports: None Associated Signs And Symptoms: Denies: Hostile, Confused, Hallucinating, Paranoid behavior, Sleep disturbance, Appetite change Related History: Denies: Suicidal thoughts, Suicidal plan, Suicidal gestures, Homicidal thoughts, Homicidal plan, Homicidal gestures, Prior attempts, Recent stressors Completed Suicide Risk Factors: None Patient In Custody Of Police: No Social Withdrawal Present: No Social Isolation Present: No Prior Suicide Attempt: No Injury From Prior Suicide Attempt: No Related Surgical History: Reports: None Patient Uncooperative For Exam: No Appearance: Present: Clean Thought Process: Present: Logical Insight: Present: Good Memory: Intact Judgement: Normal Danger To Others: No Patient Medically Stable For: Psych evaluation Differential Diagnoses: Anxiety Review of Systems - Review Of Systems Constitutional: Reports: No symptoms Eyes: Reports: No symptoms Ears, Nose, Mouth, Throat: Reports: No symptoms Respiratory: Reports: No symptoms Cardiac: Reports: No symptoms GI: Reports: No symptoms : Reports: No symptoms Musculoskeletal: Reports: No symptoms Skin: Reports: No symptoms Neurological: Reports: Emotional problems Endocrine: Reports: No symptoms Hematologic/Lymphatic: Reports: No symptoms All Other Systems: Reviewed and Negative Past Medical History - Past Medical History Previously Healthy: Yes Endocrine: Reports: None Cardiovascular: Reports: None Respiratory: Reports: None Hematological: Reports: None Gastrointestinal: Reports: None Genitourinary: Reports: None Neuro/Psych: Reports: Migraine Musculoskeletal: Reports: None Cancer: Reports: None Last Menstrual Period: 07/20/18 - Surgical History General Surgical History: Reports: Unknown - Family History Family History: Reports: Unknown - Social History Smoking Status: Former smoker Hx Substance Use: No Alcohol Screening: Occasionally Physical Exam - Physical Exam Appearance: Well-appearing, No pain distress, Well-nourished Eyes: DAIJA, EOMI, Conjunctiva clear ENT: Ears normal, Nose normal, Oropharynx normal Respiratory: Airway patent, Breath sounds clear, Breath sounds equal, Respirations nonlabored Cardiovascular: RRR, Pulses normal, No rub, No murmur GI/: Soft, Nontender, No masses, Bowel sounds normal, No Organomegaly Musculoskeletal: Normal strength, ROM intact, No edema, No calf tenderness Skin: Warm, Dry, Normal color Neurological: Sensation intact, Motor intact, Reflexes intact, Cranial nerves intact, Alert, Oriented Psychiatric: Affect appropriate, Mood appropriate Critical Care Note - Critical Care Note Total Time (mins): 0 Course - Course Hematology/Chemistry: 08/03/18 15:59 08/03/18 15:59 Orders, Labs, Meds: Lab Review 08/03/18 08/03/18 08/03/18 15:59 15:59 16:28 WBC 9.35 RBC 4.71 Hgb 14.9 Hct 43.4 MCV 92.1 MCH 31.6 H MCHC 34.3 RDW Coeff of Amy 11.8 Plt Count 318 Immature Gran % (Auto) 0.2 Neut % (Auto) 62.0 Lymph % (Auto) 29.1 Arthur % (Auto) 6.7 Eos % (Auto) 1.6 Baso % (Auto) 0.4 Immature Gran # (Auto) 0.0 Neut # (Auto) 5.8 Lymph # (Auto) 2.7 Arthur # (Auto) 0.6 Eos # (Auto) 0.2 Baso # (Auto) 0.0 Sodium 136.3 Potassium 4.01 Chloride 101.7 Carbon Dioxide 26.2 Anion Gap 12.41 BUN 14.8 Creatinine 0.59 L Estimated GFR (MDRD) 121.00 BUN/Creatinine Ratio 25.08 Glucose 93.2 Calcium 9.98 Total Bilirubin 0.38 AST 29.2 ALT 39.7 H Alkaline Phosphatase 80.3 Total Protein 8.44 H Albumin 4.92 Globulin 3.52 Albumin/Globulin Ratio 1.39 Urine Test Urine Opiates Screen Negative Ur Oxycodone Screen Negative Urine Methadone Screen Negative Ur Propoxyphene Screen Negative Ur Barbiturates Screen Negative U Tricyclic Antidepress Negative Ur Phencyclidine Scrn Negative Ur Amphetamine Screen Negative U Methamphetamines Scrn Negative U Benzodiazepines Scrn Negative Urine Cocaine Screen Negative U Cannabinoids Screen Negative 08/03/18 16:28 WBC RBC Hgb Hct MCV MCH MCHC RDW Coeff of Amy Plt Count Immature Gran % (Auto) Neut % (Auto) Lymph % (Auto) Arthur % (Auto) Eos % (Auto) Baso % (Auto) Immature Gran # (Auto) Neut # (Auto) Lymph # (Auto) Arthur # (Auto) Eos # (Auto) Baso # (Auto) Sodium Potassium Chloride Carbon Dioxide Anion Gap BUN Creatinine Estimated GFR (MDRD) BUN/Creatinine Ratio Glucose Calcium Total Bilirubin AST ALT Alkaline Phosphatase Total Protein Albumin Globulin Albumin/Globulin Ratio Urine Test Negative Urine Opiates Screen Ur Oxycodone Screen Urine Methadone Screen Ur Propoxyphene Screen Ur Barbiturates Screen U Tricyclic Antidepress Ur Phencyclidine Scrn Ur Amphetamine Screen U Methamphetamines Scrn U Benzodiazepines Scrn Urine Cocaine Screen U Cannabinoids Screen Orders Category Date Time Status CBC W/ AUTO DIFF Stat LAB 08/03/18 15:50 Ordered COMPREHENSIVE METABOLIC PANEL Stat LAB 08/03/18 15:50 Ordered DRUG SCREEN (RAPID FOR ED) [DRUG SCREEN, URINE, RAPID] LAB 08/03/18 15:50 Uncollected Stat URINE Stat LAB 08/03/18 15:51 Uncollected Vital Signs: Temp Pulse Resp BP Pulse Ox 08/03/18 15:27 98.7 F 114 H 20 133/89 99 Departure - Departure Time of Disposition: 17:23 Disposition: HOME SELF-CARE Discharge Problem: Anxiety Instructions: Anxiety (ED) Condition: Good Pt referred to PMD for follow-up: Yes IPMP verified?: No Additional Instructions: Please call your Family Physician as soon as possible to schedule a follow-up appointment. Allergies/Adverse Reactions: Allergies codeine phosphate [From Tylenol-Codeine #3] Adverse Reaction (Verified 08/03/18 15:31) Home Medications: Ambulatory Orders 1 [No Reported Medications] 08/03/18
== END 2018-08-03 17:41 | disposition home or self-care (01) ==
LOC: ED 15:27
DX: F41.9 Anxiety disorder, unspecified (principal)
CPT/HCPCS: 36415; 80053; 80306; 81025; 85025; 99283

== ENCOUNTER 2018-08-16 16:48 | Emergency (ER) ==
[2018-08-16 16:52] VITALS: BP 133/79; TEMP 97; BMI 26.2
--- NOTE | 2018-08-16 17:08 | ED.PDOC ---
General ED Provider: Dr. EBONY MARTIN Chief Complaint: Shortness of Air Stated Complaint: Has sensation of having difficulty of catching breath or taking deep breath. Denies chest pain. Feels like has pressure below diaphram and notes bowel gas. Denies other symptoms Time Seen by Physician: 17:00 Mode of Arrival: Walk-In Information Source: Patient Exam Limitations: No limitations Primary Care Provider: JANET TIRADO Nursing and Triage Documentation Reviewed and Agree: Yes Does patient meet sepsis criteria?: No System Inflammatory Response Syndrome: Not Applicable Sepsis Protocol: For patient's 13 years and over: Temp is 96.8 and below OR 101 and greater Pulse >90 BPM Resp >20/minute Acutely Altered Mental Status Are patient's symptoms suggestive of a new infection, such as: -Pneumonia -Skin, Soft Tissue -Endocarditis -UTI -Bone, Joint Infection -Implantable Device -Acute Abdominal Infection -Wound Infection -Meningitis -Blood Stream Catheter Infection -Unknown Respiratory Complaint Exam - Shortness of Air Complaint/Exam Onset/Duration: 2-3 days Symptoms Are: Still present Timing: Intermittent Initial Severity: Moderate Current Severity: Mild Character: Reports: Dyspnea at rest, Dyspnea on exertion. Denies: Orthopnea Aggravating: Reports: Movement, Recumbent position, Smoke exposure Alleviating: Reports: Upright position Associated Signs and Symptoms: Reports: Nasal congestion, Decreased intake Related History: Reports: Similar episode History of Healthcare-Acquired Pneumonia: No Pulmonary Embolism Risk Factors: Reports: None Cardiac Risk Factors: Reports: None Pseudomonas Risk Factors: Reports: None Tuberculosis Risk Factors: Reports: None Home Oxygen Use: No Recent Stress Test: No Recent Echo/LV Function: No Respiratory Distress: None Stridor Present: No Tracheal Deviation: No Subcutaneous Emphysema: No Accessory Muscle Use: No Retractions: Not Present Diminished Breath Sounds: No Prolonged Expiratory Phase: No Unable to Speak Full Sentences: No Fatigue: No Leg Swelling: No Mitchell's Sign Present: No Grunting Respirations: No Kussmaul Respirations: No Differential Diagnoses: Airway Obstruction, Pneumonia, Pulmonary Embolism Quality Indicators for AMI: Thrombolytics in 30min. Review of Systems - Review Of Systems Constitutional: Reports: No symptoms Eyes: Reports: No symptoms Ears, Nose, Mouth, Throat: Reports: No symptoms Respiratory: Reports: Short of air Cardiac: Reports: No symptoms GI: Reports: No symptoms : Reports: No symptoms Musculoskeletal: Reports: No symptoms Skin: Reports: No symptoms Neurological: Reports: No symptoms Endocrine: Reports: No symptoms Hematologic/Lymphatic: Reports: No symptoms All Other Systems: Other (noted to be slightly anxious. Has 3 small children) Past Medical History - Past Medical History Previously Healthy: Yes Endocrine: Reports: None Cardiovascular: Reports: None Respiratory: Reports: None Hematological: Reports: None Gastrointestinal: Reports: None Genitourinary: Reports: None Neuro/Psych: Reports: Migraine Musculoskeletal: Reports: None Cancer: Reports: None Last Menstrual Period: 08/16/17 - Surgical History General Surgical History: Reports: Unknown - Family History Family History: Reports: Unknown - Social History Smoking Status: Former smoker Hx Substance Use: No Alcohol Screening: Occasionally Physical Exam - Physical Exam Appearance: Well-appearing, No pain distress, Well-nourished Ill-appearing: None Pain Distress: None Eyes: DAIJA, EOMI, Conjunctiva clear ENT: Ears normal, Nose normal, Oropharynx normal Respiratory: Airway patent, Breath sounds clear, Breath sounds equal, Respirations nonlabored Cardiovascular: RRR, Pulses normal, No rub, No murmur GI/: Soft, Nontender, No masses, Bowel sounds normal, No Organomegaly Musculoskeletal: Normal strength, ROM intact, No edema, No calf tenderness Skin: Warm, Dry, Normal color Neurological: Sensation intact, Motor intact, Reflexes intact, Cranial nerves intact, Alert, Oriented Psychiatric: Affect appropriate, Mood appropriate, Anxious Interpretation - Radiology Interpretation Radiology Interpretation By: Radiologist Radiology Results: No acute changes Exam Interpreted: CXR Critical Care Note - Critical Care Note Total Time (mins): 60 Course - Course Hematology/Chemistry: 08/16/18 17:15 08/16/18 17:15 Orders, Labs, Meds: Lab Review 08/16/18 08/16/18 08/16/18 17:15 17:15 17:15 WBC 6.02 RBC 4.41 Hgb 14.0 Hct 40.6 MCV 92.1 MCH 31.7 H MCHC 34.5 RDW Coeff of Amy 11.9 Plt Count 323 Immature Gran % (Auto) 0.3 Neut % (Auto) 56.3 Lymph % (Auto) 33.2 [place] % (Auto) 8.0 Eos % (Auto) 1.7 Baso % (Auto) 0.5 Immature Gran # (Auto) 0.0 Neut # (Auto) 3.4 Lymph # (Auto) 2.0 [place] # (Auto) 0.5 Eos # (Auto) 0.1 Baso # (Auto) 0.0 D-Dimer (Manual) 126.31 Sodium 137.7 Potassium 3.58 Chloride 100.4 Carbon Dioxide 30.1 H Anion Gap 10.78 BUN 9.1 Creatinine 0.70 Estimated GFR (MDRD) 99.00 BUN/Creatinine Ratio 13.00 Glucose 100.2 Calcium 9.41 Total Bilirubin 0.37 AST 24.9 ALT 20.3 Alkaline Phosphatase 67.6 Troponin I < 0.012 Total Protein 7.93 Albumin 4.72 Globulin 3.21 Albumin/Globulin Ratio 1.47 Serum , Qual Urine Color Urine Clarity Urine pH Ur Specific [place] Urine Protein Urine Glucose (UA) Urine Ketones Urine Blood Urine Nitrite Urine Bilirubin Urine Urobilinogen Ur Leukocyte Esterase Urine Microscopic RBC Urine Microscopic WBC Ur Squamous Epith Cells Amorphous Sediment Urine Bacteria Urine Opiates Screen Ur Oxycodone Screen Urine Methadone Screen Ur Propoxyphene Screen Ur Barbiturates Screen U Tricyclic Antidepress Ur Phencyclidine Scrn Ur Amphetamine Screen U Methamphetamines Scrn U Benzodiazepines Scrn Urine Cocaine Screen U Cannabinoids Screen 08/16/18 08/16/18 08/16/18 17:15 17:15 17:15 WBC RBC Hgb Hct MCV MCH MCHC RDW Coeff of Amy Plt Count Immature Gran % (Auto) Neut % (Auto) Lymph % (Auto) [place] % (Auto) Eos % (Auto) Baso % (Auto) Immature Gran # (Auto) Neut # (Auto) Lymph # (Auto) [place] # (Auto) Eos # (Auto) Baso # (Auto) D-Dimer (Manual) Sodium Potassium Chloride Carbon Dioxide Anion Gap BUN Creatinine Estimated GFR (MDRD) BUN/Creatinine Ratio Glucose Calcium Total Bilirubin AST ALT Alkaline Phosphatase Troponin I Total Protein Albumin Globulin Albumin/Globulin Ratio Serum , Qual Negative Urine Color Yellow Urine Clarity Slightly Urine pH 8.5 Ur Specific [place] 1.015 Urine Protein Negative Urine Glucose (UA) Negative Urine Ketones Negative Urine Blood 1+ Urine Nitrite Negative Urine Bilirubin Negative Urine Urobilinogen 0.2 Ur Leukocyte Esterase Trace Urine Microscopic RBC 2-5 Urine Microscopic WBC 2-5 Ur Squamous Epith Cells 2-5 Amorphous Sediment 1+ Urine Bacteria 1+ Urine Opiates Screen Negative Ur Oxycodone Screen Negative Urine Methadone Screen Negative Ur Propoxyphene Screen Negative Ur Barbiturates Screen Negative U Tricyclic Antidepress Negative Ur Phencyclidine Scrn Negative Ur Amphetamine Screen Negative U Methamphetamines Scrn Negative U Benzodiazepines Scrn Negative Urine Cocaine Screen Negative U Cannabinoids Screen Negative Orders Category Date Time Status EKG-(ED ONLY) Stat CARDIO 08/16/18 17:06 Completed CBC W/ AUTO DIFF Stat LAB 08/16/18 17:15 Completed CMP [COMPREHENSIVE METABOLIC PANEL] Stat LAB 08/16/18 17:15 Completed D-DIMER Stat LAB 08/16/18 17:15 Completed HCG QUALITATIVE [SERUM ] Stat LAB 08/16/18 17:15 Completed TROPONIN I Stat LAB 08/16/18 17:15 Completed UA [URINALYSIS C & S IF INDICATED] Stat LAB 08/16/18 17:15 Completed URINE CULTURE Stat LAB 08/16/18 17:15 Completed URINE DRUG SCREEN (RAPID FOR ED) [DRUG SCREEN, URINE, LAB 08/16/18 17:15 Completed RAPID] Stat CHEST, 1V AP ONLY Stat RADS 08/16/18 17:06 Completed Vital Signs: Temp Pulse Resp BP Pulse Ox 08/16/18 16:49 97 F L 93 H 11 L 133/79 100 Departure - Departure Time of Disposition: 18:50 Disposition: HOME SELF-CARE Discharge Problem: Dyspnea, Aerophagia Instructions: Shortness of Breath (ED) Condition: Good Pt referred to PMD for follow-up: Yes IPMP verified?: No Additional Instructions: Relaxation techniques Increase activites as tolerated See pcp in next week Allergies/Adverse Reactions: Allergies codeine phosphate [From Tylenol-Codeine #3] Adverse Reaction (Verified 08/16/18 16:52) Home Medications: Ambulatory Orders 1 [No Reported Medications] 08/03/18 Disposition Discussed With: Patient, Family
--- NOTE | 2018-08-17 01:14 | DI ---
EXAM: Chest 1 view. HISTORY: Dyspnea COMPARISON: None FINDINGS: The cardiac silhouette appears normal. No focal consolidation or pneumonia is seen. No pleural fluid is seen. Skeletal structures unremarkable. IMPRESSIONS: Cardiac silhouette is normal size No pulmonary infiltrate is seen.
== END 2018-08-16 19:19 | disposition home or self-care (01) ==
LOC: ED 16:48
DX: R06.02 Shortness of breath (principal); F45.8 Other somatoform disorders
CPT/HCPCS: 36415; 80053; 80306; 81001; 84484; 84703; 85025; 85379; 87086; 93005; 93010; 99283

== ENCOUNTER 2021-04-21 12:44 | Inpatient (IN) ==
--- NOTE | 2021-04-21 13:31 | ED.PDOC ---
General ED Provider: Dr. EBONY MARTIN Chief Complaint: Abdominal Pain Stated Complaint: Abdominal Pain-mid epigastric,LUQ, Guarding and Rebound tenderness/ BS hypoactive Time Seen by Provider: 04/21/21 13:20 Mode of Arrival: Walk-In Information Source: Patient Exam Limitations: Clinical condition Primary Care Provider: JANET ROSADO Nursing and Triage Documentation Reviewed and Agree: Yes Does patient meet sepsis criteria?: No System Inflammatory Response Syndrome: Not Applicable Sepsis Protocol: For patient's 13 years and over: Temp is 96.8 and below OR 101 and greater Pulse >90 BPM Resp >20/minute Acutely Altered Mental Status Are patient's symptoms suggestive of a new infection, such as: -Pneumonia -Skin, Soft Tissue -Endocarditis -UTI -Bone, Joint Infection -Implantable Device -Acute Abdominal Infection -Wound Infection -Meningitis -Blood Stream Catheter Infection -Unknown GI Complaint Exam Abdominal Pain Complaint/Exam Onset: Gradual Duration: 3 day Symptoms Are: Worse Initial Severity: Moderate Current Severity: Severe Location of Pain: LUQ and LLQ Radiates To: Reports Chest and Flank Character: Reports Cramping and Colicky Aggravating: Reports Movement Associated Signs and Symptoms: Reports Decreased appetite, Nausea and Vomiting : 3 Para: 3 AAA Risk Factors: Reports None Cardiac Risk Factors: Reports None Ectopic Risk Factors: Reports None Ovarian Torsion Risk Factors: Reports None Abdominal Findings: Present Rebound tenderness, Peritoneal signs and CVA Tenderness Differential Diagnoses: Bowel Obstruction, Diverticulitis, Gastroenteritis, Pancreatitis, Renal Colic, Ureteral Stone, PUD and UTI Review of Systems Review Of Systems Constitutional: Reports No symptoms Eyes: Reports No symptoms Ears, Nose, Mouth, Throat: Reports No symptoms Respiratory: Reports Cough, Short of air and Wheezing Cardiac: Reports No symptoms GI: Reports Abdominal pain, Diarrhea, Nausea and Vomiting : Reports No symptoms Musculoskeletal: Reports No symptoms Skin: Reports No symptoms Neurological: Reports Anxiety Endocrine: Reports No symptoms All Other Systems: Reviewed and Negative [facility] Medical History Anxiety Hypertrophy of inferior nasal turbinate Hypertrophy, nasal, turbinate Normal menstrual period Personal history of mental disorder Sinusitis Family History (Updated 04/21/21 @ 23:26 by ENZO EVANS RN) Mother Stroke Social History (Updated 04/21/21 @ 23:30 by ENZO EVANS RN) Smoking and tobacco status: Former smoker Tobacco: How many years used: 6 Passive smoking exposure: No How long ago did patient quit smokin years Quit status: has quit before Second hand smoke exposure: No Smoking risk assessment performed: Yes Alcohol intake: current Alcohol intake frequency: holidays/special occasions only Substance use type: does not use Female Reproductive History Menstrual Hx Hysterectomy: No Hx Tubal Ligation: No Physical Exam Physical Exam Appearance: Reports Ill-appearing Ill-appearing: Mild Pain Distress: Moderate Eyes: Reports DAIJA, EOMI and Conjunctiva clear ENT: Reports Ears normal, Nose normal and Oropharynx normal Neck: Supple Respiratory: Reports Airway patent, Breath sounds clear, Breath sounds equal and Breath sounds diminished Cardiovascular: Reports RRR, Pulses normal, No rub and No murmur GI/: Reports Soft, Nontender, No Organomegaly, Tender and Bowel sounds hypoactive Musculoskeletal: Reports Normal strength, ROM intact, No edema, No calf tenderness and Limited ROM Skin: Reports Warm, Dry and Normal color Neurological: Reports Sensation intact, Motor intact, Reflexes intact, Cranial nerves intact, Alert and Oriented Psychiatric: Reports Affect appropriate Interpretation Radiology Interpretation Exam Interpreted: CT Scan (acute Epiploic appendagitis) Re-Evaluation Re-Evaluation Time of Re-Evaluation: 19:00 Status: Unchanged Vital Signs Stable: Yes Appearance: NAD Lungs: Clear Skin: Warm and Dry Neuro: Alert and Oriented X3 CV: RRR Additional Comments: Consulted Gen Surgery Dr Dunaway at [facility]- Recommended Discharge on oral NASID tx and Po antibiotics; I worsens then will see pt. 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 Req admission for observation and treatment Physician Notified: Discussed with PCP Dr Rosado-agrees to admit for observation Time of Notification: 19:40 Admit To: Observation Critical Care Note Critical Care Note Total Critical Care Time (mins): 0 Course Course Hematology/Chemistry: 04/23/21 04:08 04/23/21 04:08 Orders, Labs, Meds: Lab Review 04/21/21 04/21/21 04/21/21 13:00 14:54 14:54 WBC 6.34 RBC 4.44 Hgb 13.5 Hct 41.2 MCV 92.8 MCH 30.4 MCHC 32.8 RDW Coeff of Aym 12.9 Plt Count 277 Immature Gran % (Auto) 0.3 Neut % (Auto) 69.9 Lymph % (Auto) 21.6 [place] % (Auto) 7.7 Eos % (Auto) 0.2 Baso % (Auto) 0.3 Neut # (Auto) 4.4 Lymph # (Auto) 1.4 [place] # (Auto) 0.5 Eos # (Auto) 0.0 Baso # (Auto) 0.0 Immature Gran # (Auto) 0.0 Sodium 141.0 Potassium 3.50 Chloride 105.0 Carbon Dioxide 28.0 Anion Gap 11.50 BUN 9.0 Creatinine 0.70 Estimated GFR (MDRD) 97.00 BUN/Creatinine Ratio 12.85 Glucose 84.0 Lactic Acid Calcium 9.10 Total Bilirubin 0.40 AST 32.0 ALT 23.0 Alkaline Phosphatase 113.0 D Total Protein 7.50 Albumin 4.40 Globulin 3.10 Albumin/Globulin Ratio 1.41 Amylase 88.0 Lipase 203.0 Procalcitonin Serum , Qual Urine Color Yellow Urine Clarity Clear Urine pH 7.0 Ur Specific [place] 1.020 Urine Protein Negative Urine Glucose (UA) Negative Urine Ketones Negative Urine Blood Negative Urine Nitrite Negative Urine Bilirubin Negative Urine Urobilinogen 0.2 Ur Leukocyte Esterase Negative Adenovirus (PCR) B. pertussis DNA (PCR) B.parapertussis DNA PCR C. pneumoniae DNA (PCR) Coronavirus OC43 (PCR) Coronavirus HKU1 (PCR) Coronavirus 229E (PCR) Coronavirus NL63 (PCR) Human Metapneumovir PCR Influenza Type A (PCR) Influenza B (RT-PCR) M. pneumoniae (PCR) Parainfluenza 1 (PCR) Parainfluenza 2 (PCR) Parainfluenza 3 (PCR) Parainfluenza 4 (PCR) RSV (PCR) Entero/Rhino (PCR) SARS-CoV-2 (PCR) 04/21/21 04/21/21 04/21/21 14:54 18:00 19:14 WBC RBC Hgb Hct MCV MCH MCHC RDW Coeff of Amy Plt Count Immature Gran % (Auto) Neut % (Auto) Lymph % (Auto) [place] % (Auto) Eos % (Auto) Baso % (Auto) Neut # (Auto) Lymph # (Auto) [place] # (Auto) Eos # (Auto) Baso # (Auto) Immature Gran # (Auto) Sodium Potassium Chloride Carbon Dioxide Anion Gap BUN Creatinine Estimated GFR (MDRD) BUN/Creatinine Ratio Glucose Lactic Acid < 0.50 L Calcium Total Bilirubin AST ALT Alkaline Phosphatase Total Protein Albumin Globulin Albumin/Globulin Ratio Amylase Lipase Procalcitonin Serum , Qual Negative Urine Color Urine Clarity Urine pH Ur Specific [place] Urine Protein Urine Glucose (UA) Urine Ketones Urine Blood Urine Nitrite Urine Bilirubin Urine Urobilinogen Ur Leukocyte Esterase Adenovirus (PCR) Not detected B. pertussis DNA (PCR) Not detected B.parapertussis DNA PCR Not detected C. pneumoniae DNA (PCR) Not detected Coronavirus OC43 (PCR) Not detected Coronavirus HKU1 (PCR) Not detected Coronavirus 229E (PCR) Not detected Coronavirus NL63 (PCR) Not detected Human Metapneumovir PCR Not detected Influenza Type A (PCR) Not detected Influenza B (RT-PCR) Not detected M. pneumoniae (PCR) Not detected Parainfluenza 1 (PCR) Not detected Parainfluenza 2 (PCR) Not detected Parainfluenza 3 (PCR) Not detected Parainfluenza 4 (PCR) Not detected RSV (PCR) Not detected Entero/Rhino (PCR) Not detected SARS-CoV-2 (PCR) Not detected 04/21/21 19:14 WBC RBC Hgb Hct MCV MCH MCHC RDW Coeff of Amy Plt Count Immature Gran % (Auto) Neut % (Auto) Lymph % (Auto) [place] % (Auto) Eos % (Auto) Baso % (Auto) Neut # (Auto) Lymph # (Auto) [place] # (Auto) Eos # (Auto) Baso # (Auto) Immature Gran # (Auto) Sodium Potassium Chloride Carbon Dioxide Anion Gap BUN Creatinine Estimated GFR (MDRD) BUN/Creatinine Ratio Glucose Lactic Acid Calcium Total Bilirubin AST ALT Alkaline Phosphatase Total Protein Albumin Globulin Albumin/Globulin Ratio Amylase Lipase Procalcitonin < 0.05 Serum , Qual Urine Color Urine Clarity Urine pH Ur Specific [place] Urine Protein Urine Glucose (UA) Urine Ketones Urine Blood Urine Nitrite Urine Bilirubin Urine Urobilinogen Ur Leukocyte Esterase Adenovirus (PCR) B. pertussis DNA (PCR) B.parapertussis DNA PCR C. pneumoniae DNA (PCR) Coronavirus OC43 (PCR) Coronavirus HKU1 (PCR) Coronavirus 229E (PCR) Coronavirus NL63 (PCR) Human Metapneumovir PCR Influenza Type A (PCR) Influenza B (RT-PCR) M. pneumoniae (PCR) Parainfluenza 1 (PCR) Parainfluenza 2 (PCR) Parainfluenza 3 (PCR) Parainfluenza 4 (PCR) RSV (PCR) Entero/Rhino (PCR) SARS-CoV-2 (PCR) Orders Category Date Time Status ACTIVITY .BR with BRP CARE 04/21/21 19:41 Completed INTAKE & OUTPUT Q8HR CARE 04/21/21 19:41 Completed NPO REMINDER: IMAGING ONCE CARE 04/21/21 16:18 Completed TELEMETRY MONITORING TELE CARE 04/21/21 19:36 Completed VITAL SIGNS Q8HR CARE 04/21/21 19:41 Completed AMYLASE Stat LAB 04/21/21 14:54 Completed CBC W/ AUTO DIFF DAILY@0600 LAB 04/22/21 05:15 Completed CBC W/ AUTO DIFF DAILY@0600 LAB 04/23/21 04:08 Completed CBC W/ AUTO DIFF Stat LAB 04/21/21 14:54 Completed CMP [COMPREHENSIVE METABOLIC PANEL] Stat LAB 04/21/21 14:54 Completed COMPREHENSIVE METABOLIC PANEL DAILY@0600 LAB 04/22/21 05:15 Completed COMPREHENSIVE METABOLIC PANEL DAILY@0600 LAB 04/23/21 04:08 Completed HCG QUALITATIVE [SERUM ] Stat LAB 04/21/21 14:54 Completed LACTIC ACID Stat LAB 04/21/21 19:14 Completed LIPASE Stat LAB 04/21/21 14:54 Completed PROCALCITONIN Stat LAB 04/21/21 19:14 Completed RESPIRATORY PANEL 2.1 (PCR) Stat LAB 04/21/21 18:00 Completed URINALYSIS C & S IF INDICATED Stat LAB 04/21/21 13:00 Completed Hydromorphone HCl [Dilaudid 1 mg/ml Syringe] MEDS 04/21/21 14:38 Discontinued 1 mg IVP ONCE STA Ketorolac Tromethamine [Toradol] MEDS 04/21/21 18:30 Discontinued 30 mg IVP ONCE STA Lamotrigine [Lamictal] MEDS 04/21/21 21:00 Discontinued 300 mg PO BEDTIME Levofloxacin/D5w [Levaquin 500 mg/100 ml D5w] MEDS 04/21/21 20:00 Discontinued 500 mg in 100 ml IV DAILY Metronidazole/Sodium Chloride [Flagyl 500 mg/100 ml] MEDS 04/21/21 18:29 Discontinued 500 mg in 100 ml IV ONCE Metronidazole/Sodium Chloride [Flagyl 500 mg/100 ml] MEDS 04/22/21 05:00 Discontinued 500 mg in 100 ml IV Q8HR Ondansetron HCl/Pf [Zofran 4 mg/2 ml] MEDS 04/21/21 14:38 Discontinued 4 mg IVP ONCE STA Ondansetron HCl/Pf [Zofran 4 mg/2 ml] MEDS 04/21/21 19:40 Discontinued 4 mg IVP Q6H PRN Pantoprazole Sodium [Protonix] MEDS 04/22/21 09:00 Discontinued 40 mg PO QDAC Quetiapine Fumarate [Seroquel] MEDS 04/21/21 21:00 Discontinued 200 mg PO BEDTIME Sodium Chloride 0.9% [Sodium Chloride] 1,000 ml MEDS 04/21/21 16:25 Discontinued IV BOLUS RESUSCITATION STATUS Routine OTHERS 04/21/21 19:[address] ABDOMEN/PELVIS W CONTRAST Stat RADS 04/21/21 16:[address] ABDOMEN/PELVIS WO CONTRAST Stat RADS 04/21/21 14:36 Completed Medications Discontinued Medications Generic Name Dose Route Start Last Admin Trade Name Freq PRN Reason Stop Dose Admin Acetaminophen 650 mg 04/22/21 00:07 Acetaminophen 325 Mg Tablet PO Q4H PRN Headache Atropine Sulfate 0.5 mg 04/22/21 00:07 Atropine Sulfate Inj 1 Mg/10 Ml Disp.Syrin IVP 04/23/21 00:06 ONCE PRN Symptomatic Bradycardia Bisacodyl 10 mg 04/22/21 16:01 04/22/21 16:32 Bisacodyl 10 Mg Supp.Rect RC 04/22/21 16:02 10 mg ONCE ONE Administration Hydromorphone HCl 1 mg 04/21/21 14:38 04/21/21 15:22 Hydromorphone Hcl 1 Mg/Ml Syringe IVP 04/21/21 14:39 1 mg ONCE STA Administration Hydromorphone HCl 1 mg 04/22/21 00:06 04/22/21 16:31 Hydromorphone Hcl 1 Mg/Ml Syringe IVP 1 mg Q4HR PRN Administration MODERATE PAIN Sodium Chloride 1,000 mls @ 500 mls/hr 04/21/21 16:25 04/21/21 16:45 Sodium Chloride IV 04/21/21 18:24 500 mls/hr BOLUS STA Administration Metronidazole 500 mg in 100 mls @ 100 mls/hr 04/21/21 18:29 04/21/21 18:35 Flagyl 500 Mg/100 Ml IV 04/21/21 19:28 100 mls/hr ONCE ONE Administration Metronidazole 500 mg in 100 mls @ 100 mls/hr 04/22/21 05:00 04/23/21 05:07 Flagyl 500 Mg/100 Ml IV 04/25/21 04:59 100 mls/hr Q8HR JENSEN Administration Levofloxacin/Dextrose 500 mg in 100 mls @ 100 mls/hr 04/21/21 20:00 04/21/21 21:00 Levaquin 500 Mg/100 Ml D5w IV 04/24/21 19:59 100 mls/hr DAILY JENSEN Administration Levofloxacin/Dextrose 500 mg in 100 mls @ 100 mls/hr 04/22/21 21:00 04/22/21 22:09 Levaquin 500 Mg/100 Ml D5w IV 04/25/21 20:59 100 mls/hr BEDTIME JENSEN Administration Dextrose/Sodium Chloride 1,000 mls @ 70 mls/hr 04/22/21 09:30 04/23/21 03:14 Dextrose 5%-1/2ns Iv Solution IV 70 mls/hr .[id number] JENSEN Administration Ketorolac Tromethamine 30 mg 04/21/21 18:30 04/21/21 18:35 Ketorolac Tromethamine 30 Mg/Ml Vial IVP 04/21/21 18:31 30 mg ONCE STA Administration Ketorolac Tromethamine 15 mg 04/22/21 00:06 04/23/21 11:04 Ketorolac Tromethamine 15 Mg/Ml Vial IVP 04/26/21 00:06 15 mg Q4HR PRN Administration MODERATE PAIN Lamotrigine 300 mg 04/21/21 21:00 04/22/21 20:45 Lamotrigine 25 Mg Tablet PO 300 mg BEDTIME JENSEN Administration Magnesium Hydroxide 30 ml 04/22/21 16:01 04/22/21 16:32 Magnesium Hydroxide 30 Ml Cup PO 04/22/21 16:02 30 ml ONCE STA Administration Nitroglycerin 0.4 mg 04/22/21 00:07 Nitroglycerin 0.4 Mg Tab.Subl SL Q5MIN X 3 DOSES PRN Chest Pain Ondansetron HCl 4 mg 04/21/21 14:38 04/21/21 15:23 Ondansetron Hcl/Pf 4 Mg/2 Ml Sdv IVP 04/21/21 14:39 4 mg ONCE STA Administration Ondansetron HCl 4 mg 04/21/21 19:40 04/22/21 19:35 Ondansetron Hcl/Pf 4 Mg/2 Ml Sdv IVP 4 mg Q6H PRN Administration Nasal Congestion Pantoprazole Sodium 40 mg 04/22/21 09:00 04/22/21 09:20 Pantoprazole Sodium 40 Mg Tablet. PO 40 mg QDAC JENSEN Administration Pantoprazole Sodium 40 mg 04/22/21 17:00 04/23/21 06:06 Pantoprazole Sodium 40 Mg Tablet. PO 40 mg BIDAC JENSEN Administration Quetiapine Fumarate 200 mg 04/21/21 21:00 04/22/21 20:45 Quetiapine Fumarate 100 Mg Tablet PO 200 mg BEDTIME JENSEN Administration Sodium Chloride 1 syr 04/22/21 05:00 04/23/21 05:07 0.9% Sodium Chloride 10 Ml Disp.Syrin IVF 1 syr Q8HR JENSEN Administration Trazodone HCl 50 - 100 mg 04/21/21 23:36 Trazodone Hcl 50 Mg Tablet PO BEDTIME PRN Insomnia Trazodone HCl 50 - 100 mg 04/22/21 07:30 Trazodone Hcl 50 Mg Tablet PO BEDTIME PRN Insomnia Vital Signs: Temp Pulse Resp BP Pulse Ox 04/21/21 12:44 98.6 F 107 H 16 116/82 98 Discharge Plan Discharge Patient Disposition: PLACED OBSERVATION Discharge Problem: Epiploic appendagitis ED Provider: EBONY MARTIN Condition: Stable Physician Progress Note: []
[2021-04-21 13:58] LABS: BILIRUBIN,URINE Negative (NEGATIVE); CLARITY,URINE Clear (CLEAR); COLOR,URINE Yellow (YELLOW); GLUCOSE, URINE (UA) Negative (NEGATIVE); KETONES,URINE Negative (NEGATIVE); LEUKOCYTE ESTERASE ,URINE Negative (NEGATIVE); NITRITE,URINE Negative (NEGATIVE); PROTEIN,URINE Negative (NEGATIVE); URINE, BLOOD Negative (NEGATIVE); UROBILINOGEN,URINE 0.2 (0.2)
[2021-04-21] MEDS ORDERED: DILAUDID 1 MG/ML SYRINGE IVP STA (14:38)
[2021-04-21] MEDS ORDERED: ZOFRAN 4 MG/2 ML IVP STA (14:38)
[2021-04-21 14:57] LABS: BASOPHILS % (AUTO) 0.3 % (0.0-3.0); EOSINOPHILS % (AUTO) 0.2 % (0.0-7.0); HEMATOCRIT 41.2 % (37.0-47.0); HEMOGLOBIN 13.5 g/dl (12.0-16.0); IMMATURE GRANULOCYTE % (AUTO) 0.3 % (0.0-5.0); LYMPHOCYTES # (AUTO) 1.4 K/uL (0.60-3.4); LYMPHOCYTES % (AUTO) 21.6 (10.0-50.0); MEAN CORPUSCULAR HEMOGLOBIN 30.4 pg (27.0-31.0); MEAN CORPUSCULAR HGB CONC 32.8 (31.8-35.4); MEAN CORPUSCULAR VOLUME 92.8 fl (81.0-99.0); MONOCYTES # (AUTO) 0.5 K/uL (0.4-2.0); MONOCYTES % (AUTO) 7.7 (0-10); NEUTROPHILS # (AUTO) 4.4 K/ul (2.0-6.9); NEUTROPHILS % (AUTO) 69.9 % (42.2-75.2); PLATELET COUNT 277 10^3/uL (140-440); RDW COEFFICIENT OF VARIATION 12.9 % (11.6-14.8); RED BLOOD COUNT 4.44 10^6/ul (4.20-5.40); WHITE BLOOD COUNT 6.34 K/ul (4.6-10.2)
[2021-04-21 15:19] LABS: ALBUMIN 4.4 g/dL (3.5-5.0); BILIRUBIN,TOTAL 0.4 mg/dL (0.2-1.3); CALCIUM 9.1 mg/dL (8.4-10.2); CREATININE 0.7 mg/dL (0.60-1.30); POTASSIUM 3.5 mmol/L (3.5-5.1); SERUM PREGNANCY NEGATIVE (NEGATIVE); TOTAL PROTEIN 7.5 g/dL (6.3-8.2)
--- NOTE | 2021-04-21 15:49 | CT ---
EXAM: CT Abdomen without contrast. CT Pelvis without contrast. HISTORY: Mid epigastric and left upper quadrant.. COMPARISON: Ultrasound 09/06/2019. TECHNIQUE: Multiple axial images of the abdomen and pelvis were obtained without intravenous contras t. Images were reformatted in the sagittal and coronal plane. FINDINGS: Please note that evaluation of the abdominal and pelvic structures is limited due to lack of intravenous contrast. Lung bases are clear. No acute osseous abnormality. Liver, gallbladder, pancreas, spleen, adrenal glands, and kidneys are normal. No calcified renal sto billy or hydronephrosis detected. There is focal edema along the lateral aspect of the descending colon with somewhat ring-like soft ti ssue focus in this area on axial image 60. No involvement of a diverticulum is present although ther e is diverticulosis. There is no bowel obstruction. Appendix is normal. Uterus demonstrates normal contour. Bladder normal. Phleboliths in the pelvis. No free fluid or fr ee air. Aorta normal in caliber. Fat-containing umbilical hernia noted. IMPRESSION: Epiploic appendagitis of the descending colon. All CT scans are performed using dose optimization techniques as appropriate to the performed exam an d include at least one of the following: Automated exposure control, adjustment of the mA and/or kV according t o size, and the use of iterative reconstruction technique.
[2021-04-21] MEDS ORDERED: SODIUM CHLORIDE 1,000 ML IV STA (16:25)
--- NOTE | 2021-04-21 16:52 | CT ---
EXAM: CT Abdomen with contrast. CT Pelvis with contrast. HISTORY: Abdominal pain. Abnormal noncontrast CT. COMPARISON: Noncontrast CT earlier the same day. TECHNIQUE: Multiple axial images of the abdomen and pelvis were obtained following intravenous admin istration of 75 mL Omnipaque 350, low osmolar. Images were reformatted in the sagittal and coronal p kim. FINDINGS: No acute abnormality in the lung bases. There is no acute osseous abnormality. The liver, gallbladder, pancreas, spleen, adrenal glands, and kidneys are normal. Stable edema surrounding the descending colon with central ring-like soft tissue density. There is n o bowel obstruction. Diverticulosis noted. Appendix normal. Uterus demonstrates normal contour. Bladder normal. There is no free fluid, free air or lymphadenop athy. Aorta normal in caliber. Small fat-containing umbilical hernia.. IMPRESSION: 1. Stable appearance of epiploic appendagitis in the descending colon. 2. No new findings within the abdomen or pelvis. All CT scans are performed using dose optimization techniques as appropriate to the performed exam an d include at least one of the following: Automated exposure control, adjustment of the mA and/or kV according t o size, and the use of iterative reconstruction technique.
[2021-04-21 18:16] LABS: BORDETELLA PARAPERTUSSIS (PCR) NOT DETECTED (NOT DETECT); BORDETELLA PERTUSSIS (PCR) NOT DETECTED (NOT DETECT); CHLAMYDIA PNEUMONIAE (PCR) NOT DETECTED (NOT DETECT); CORONAVIRUS 229E (PCR) NOT DETECTED (NOT DETECT); CORONAVIRUS HKU1 (PCR) NOT DETECTED (NOT DETECT); CORONAVIRUS NL63 (PCR) NOT DETECTED (NOT DETECT); CORONAVIRUS OC43 (PCR) NOT DETECTED (NOT DETECT); HUMAN METAPNEUMOVIRUS (PCR) NOT DETECTED (NOT DETECT); HUMAN RHINOVIRUS/ENTEROV (PCR) NOT DETECTED (NOT DETECT); INFLUENZA B (PCR) NOT DETECTED (NOT DETECT); MYCOPLASMA PNEUMONIAE (PCR) NOT DETECTED (NOT DETECT); PARAINFLUENZA VIRUS 1 (PCR) NOT DETECTED (NOT DETECT); PARAINFLUENZA VIRUS 2 (PCR) NOT DETECTED (NOT DETECT); PARAINFLUENZA VIRUS 3 (PCR) NOT DETECTED (NOT DETECT); PARAINFLUENZA VIRUS 4 (PCR) NOT DETECTED (NOT DETECT); RESPIRATORY SYNCYTIAL V (PCR) NOT DETECTED (NOT DETECT); SARS_COV_2 (PCR) NOT DETECTED (NOT DETECT)
[2021-04-21] MEDS ORDERED: FLAGYL PO ONE (18:21)
[2021-04-21] MEDS ORDERED: FLAGYL 500 MG/100 ML 500 MG/100 ML BAG IV ONE (18:29)
[2021-04-21] MEDS ORDERED: TORADOL IVP STA (18:30)
[2021-04-21 19:08] LABS: ADENOVIRUS (PCR) NOT DETECTED (NOT DETECT)
[2021-04-21] MEDS ORDERED: LEVAQUIN 500 MG/100 ML D5W 500 MG/100 ML BAG IV SCH (20:00)
[2021-04-21 23:23] VITALS: BMI 28.7
[2021-04-21] MEDS ORDERED: DESYREL PO PRN (23:36)
[2021-04-22] MEDS ORDERED: NITROSTAT SL PRN (00:07)
[2021-04-22] MEDS ORDERED: TYLENOL PO PRN (00:07)
[2021-04-22] MEDS ORDERED: ATROPINE SULFATE PFS IVP PRN (00:07)
[2021-04-22] MEDS: LAMICTAL PO SCH ×2 (00:27→20:45)
[2021-04-22] MEDS: SEROQUEL PO SCH ×2 (00:27→20:45)
[2021-04-22] MEDS: DILAUDID 1 MG/ML SYRINGE IVP PRN ×2 (00:28→16:31)
[2021-04-22] MEDS: ZOFRAN 4 MG/2 ML IVP PRN ×2 (01:57→19:35)
[2021-04-22] MEDS: FLAGYL 500 MG/100 ML 500 MG/100 ML BAG IV SCH ×3 (04:36→20:49)
[2021-04-22 05:20] LABS: BASOPHILS % (AUTO) 0.4 % (0.0-3.0); EOSINOPHILS % (AUTO) 0.4 % (0.0-7.0); HEMATOCRIT 40.2 % (37.0-47.0); IMMATURE GRANULOCYTE % (AUTO) 0.4 % (0.0-5.0); LYMPHOCYTES # (AUTO) 1.2 K/uL (0.60-3.4); LYMPHOCYTES % (AUTO) 25.1 (10.0-50.0); MEAN CORPUSCULAR HEMOGLOBIN 30.3 pg (27.0-31.0); MEAN CORPUSCULAR HGB CONC 32.3 (31.8-35.4); MEAN CORPUSCULAR VOLUME 93.7 fl (81.0-99.0); MONOCYTES # (AUTO) 0.4 K/uL (0.4-2.0); MONOCYTES % (AUTO) 7.7 (0-10); NEUTROPHILS # (AUTO) 3.2 K/ul (2.0-6.9); PLATELET COUNT 209 10^3/uL (140-440); RDW COEFFICIENT OF VARIATION 12.9 % (11.6-14.8); RED BLOOD COUNT 4.29 10^6/ul (4.20-5.40); WHITE BLOOD COUNT 4.82 K/ul (4.6-10.2)
[2021-04-22 05:37] LABS: ALANINE AMINOTRANSFERASE 19.3 U/L (0-35); ALBUMIN 4.14 g/dL (3.5-5.0); ALKALINE PHOSPHATASE 86.3 U/L (38-126); BILIRUBIN,TOTAL 0.55 mg/dL (0.2-1.3); BLOOD UREA NITROGEN 8.5 mg/dL (7-17); CALCIUM 8.77 mg/dL (8.4-10.2); CARBON DIOXIDE 24.2 mmol/L (22-30.0); CHLORIDE 107.8 mmol/L (98-107); CREATININE 0.55 mg/dL (0.60-1.30); GLUCOSE 84.4 mg/dL (74-106); POTASSIUM 3.82 mmol/L (3.5-5.1); TOTAL PROTEIN 6.77 g/dL (6.3-8.2)
[2021-04-22 06:08] LABS: TROPONIN I < 0.012 ng/ml (0.0000-0.120)
[2021-04-22] MEDS ORDERED: DESYREL PO PRN (07:30)
[2021-04-22 08:30] LABS: CREATINE KINASE 33.5 U/L (30-135)
[2021-04-22 08:43] LABS: TROPONIN I < 0.012 ng/ml (0.0000-0.120)
[2021-04-22] MEDS ORDERED: PROTONIX PO SCH (09:00)
[2021-04-22] MEDS: DEXTROSE 5%-1/2NS IV SOLUTION 1,000 ML IV SCH (09:34)
--- NOTE | 2021-04-22 10:07 | DI ---
EXAM: Chest one view, frontal view only. HISTORY: Left upper quadrant pain. COMPARISON: 08/16/2018. FINDINGS: The heart size is normal. There is no pulmonary vascular congestion. The lungs are clear . No pleural effusion or pneumothorax is seen. No acute osseous abnormality is identified. Since t he prior study, there has been no significant interval change. IMPRESSION: No acute cardiopulmonary process.
[2021-04-22] MEDS: TORADOL IVP PRN (13:13)
[2021-04-22] MEDS ORDERED: MILK OF MAGNESIA PO STA (16:01)
[2021-04-22] MEDS ORDERED: DULCOLAX RC ONE (16:01)
[2021-04-22] MEDS: PROTONIX PO SCH (17:24)
[2021-04-22] MEDS ORDERED: LEVAQUIN 500 MG/100 ML D5W 500 MG/100 ML BAG IV SCH (21:00)
[2021-04-22] MEDS ORDERED: LEVAQUIN 750 MG/150 ML D5W 750 MG/150 ML BAG IV SCH (21:00)
[2021-04-23] MEDS: DEXTROSE 5%-1/2NS IV SOLUTION 1,000 ML IV SCH (03:14)
[2021-04-23 04:52] LABS: BASOPHILS % (AUTO) 0.4 % (0.0-3.0); EOSINOPHILS % (AUTO) 0.9 % (0.0-7.0); HEMATOCRIT 37.2 % (37.0-47.0); IMMATURE GRANULOCYTE % (AUTO) 0.2 % (0.0-5.0); LYMPHOCYTES # (AUTO) 1.3 K/uL (0.60-3.4); MEAN CORPUSCULAR HEMOGLOBIN 30.2 pg (27.0-31.0); MEAN CORPUSCULAR HGB CONC 32.3 (31.8-35.4); MEAN CORPUSCULAR VOLUME 93.7 fl (81.0-99.0); MONOCYTES # (AUTO) 0.5 K/uL (0.4-2.0); MONOCYTES % (AUTO) 11.7 (0-10); NEUTROPHILS # (AUTO) 2.8 K/ul (2.0-6.9); NEUTROPHILS % (AUTO) 59.8 % (42.2-75.2); PLATELET COUNT 240 10^3/uL (140-440); RDW COEFFICIENT OF VARIATION 12.9 % (11.6-14.8); RED BLOOD COUNT 3.97 10^6/ul (4.20-5.40); WHITE BLOOD COUNT 4.63 K/ul (4.6-10.2)
[2021-04-23] MEDS: FLAGYL 500 MG/100 ML 500 MG/100 ML BAG IV SCH (05:07)
[2021-04-23 05:08] LABS: ALANINE AMINOTRANSFERASE 13.4 U/L (0-35); ALBUMIN 3.66 g/dL (3.5-5.0); ASPARTATE AMINO TRANSFERASE 19.8 U/L (14-36); BILIRUBIN,TOTAL 0.28 mg/dL (0.2-1.3); BLOOD UREA NITROGEN 5.8 mg/dL (7-17); CALCIUM 8.73 mg/dL (8.4-10.2); CARBON DIOXIDE 26.9 mmol/L (22-30.0); CHLORIDE 106.7 mmol/L (98-107); CREATININE 0.65 mg/dL (0.60-1.30); GLUCOSE 96.3 mg/dL (74-106); POTASSIUM 3.91 mmol/L (3.5-5.1); SODIUM 140.5 mmol/L (134.5-145); TOTAL PROTEIN 6.16 g/dL (6.3-8.2)
[2021-04-23] MEDS: TORADOL IVP PRN ×2 (05:21→11:04)
[2021-04-23] MEDS: PROTONIX PO SCH (06:06)
--- NOTE | 2021-04-23 09:04 | PCM.PROG ---
Attending Provider: ATTENDING PROVIDER: Dr. JANET TIRADO This patient is seen with Chelsea Allen, Nurse Practitioner. DATE OF SERVICE: 04/23/21 SUBJECTIVE: This 30 year old /WHITE F was hospitalized 04/21/21. The patient is resting comfortably. States abdominal pain has improved. She would like to go home today. Eating and drinking well. The patient rates her pain as a 4. Pain has only worsened with straining to have a bowel movement. REVIEW OF SYSTEMS: CONSTITUTIONAL: No night sweats. No fatigue, malaise, lethargy. No fever or chills. HEENT: Eyes: No visual changes. No eye pain. No eye discharge. ENT: No runny nose. No epistaxis. No sinus pain. No odynophagia. No congestion. RESPIRATORY: No cough, no congestion. No hemoptysis. No shortness of breath. CARDIOVASCULAR: No angina symptoms. No CHF symptoms. No atypical chest pain for CAD. No palpitations. No orthopnea.. GASTROINTESTINAL: No abdominal pain. No nausea or vomiting. No diarrhea or constipation. No hematemesis. No hematochezia. GENITOURINARY: No urgency. No frequency. No dysuria. No hematuria. No obstructive symptoms. No discharge. No pain. No significant abnormal bleeding. MUSCULOSKELETAL: No musculoskeletal pain; no joint swelling. Intermittent abdominal pain. NEUROLOGICAL: Awake, alert, oriented to time, place and person. No headache. No neck pain. No syncope. No seizures. No dizziness. PSYCHIATRIC: Not anxious. No depression. No suicidal thoughts. No homicidal thoughts. SKIN: No rash. No lesions. No wounds. ENDOCRINE: No unexplained weight loss. No weight gain. HEMATOLOGIC/LYMPHATIC: No anemia. No purpura. No petechiae. No prolonged or excessive bleeding. No palpable lymph nodes. PHYSICAL EXAMINATION: GENERAL: The patient is awake, alert and oriented, lying in bed in no distress. VITAL SIGNS: Temperature 98.8 F, Pulse 100, Respiratory Rate 18, BP 111/79, Pulse Ox 99% HEENT: Head normocephalic, atraumatic. Eyes: Extraocular muscles are intact. Pupils are equal, round and reactive to light and accommodation. Ears: No lesions. Nose appeared normal. Throat: No exudate or erythema. NECK: Supple. No JVD, no carotid bruit. No lymphadenopathy or thyromegaly. LUNGS: Clear to auscultation. Percussion note normal. Chest symmetrical. HEART: S1, S2, no S3. No murmurs. No cyanosis or clubbing. No ascites. Pulses: Dorsalis pedis and posterior tibial pulses +1 to +2 both sides. ABDOMEN: Soft. Mild tenderness left lower quadrant. Bowel sounds active. No CVA tenderness. No mass felt. EXTREMITIES: No edema. Full range of motion of all extremities, equal. NEUROLOGIC: No focal deficit. Cranial nerves II through XII are grossly intact. No headache. No double vision. SKIN: Not dry. Intact. Turgor-normal. LYMPHATIC: No palpable lymph nodes/no lymphedema. MUSCULOSKELETAL: Normal joints with no swelling. Muscle tone is normal. LAB REVIEW: 04/23/21 04:08 04/23/21 04:08 04/23/21 04:08: Sodium 140.5, Potassium 3.91, Chloride 106.7, Carbon Dioxide 26.9, Anion Gap 10.81, BUN 5.8 L, Creatinine 0.65, Estimated GFR (MDRD) 106.00, BUN/Creatinine Ratio 8.92, Glucose 96.3, Calcium 8.73, Total Bilirubin 0.28, AST 19.8, ALT 13.4, Alkaline Phosphatase 72.0, Total Protein 6.16 L, Albumin 3.66, Globulin 2.50, Albumin/Globulin Ratio 1.46 04/23/21 04:08: WBC 4.63, RBC 3.97 L, Hgb 12.0, Hct 37.2, MCV 93.7, MCH 30.2, MCHC 32.3, RDW Coeff of Amy 12.9, Plt Count 240, Immature Gran % (Auto) 0.2, Neut % (Auto) 59.8, Lymph % (Auto) 27.0, [place] % (Auto) 11.7 H, Eos % (Auto) 0.9, Baso % (Auto) 0.4, Neut # (Auto) 2.8, Lymph # (Auto) 1.3, [place] # (Auto) 0.5, Eos # (Auto) 0.0, Baso # (Auto) 0.0, Immature Gran # (Auto) 0.0 04/22/21 08:14: Total Creatine Kinase 33.5, Troponin I < 0.012 ASSESSMENT: Please see below. 1. Epiploic appendagitis of descending colon 2. Abdominal pain PLAN: 1. Possible discharge today will see how pain is controlled this morning 2. Labs are stable 3. Small meals 4. Discontinue IV fluids Plan and coordination of the patient's care discussed in the presence of Primary Care Coordinator and nurse. SCRIBED BY: Radha MASSEYist scribed while in presence of service performed by Dr. Tirado/Chelsea Allen APRN on 04/23/21 ([id number])
--- NOTE | 2021-04-23 10:42 | PN ---
DATE OF SERVICE: 04/21/21 SUBJECTIVE: 30-year-old white female hospitalized through the emergency room because of abdominal pain. The patient had left-sided upper and lower quadrant pain for three to four days. Practically had not had anything to eat today and throwing up off and on. The pain is moderate to severe. On CT scan of the abdomen showed epiploic appendagitis. Emergency room Dr. Richard called [facility], Dr. Philip-surgeon was cabinet professional and I discussed the case with Dr. Philip who has quite a few cases like this and they usually give antibiotics, self-limiting decision. Usually they don't admit the patient's, instructed Dr. Richard to first let the patient go home. I discussed the case with him and felt the patient the patient had enough pain for her to be hospitalized for pain management. I examined the patient in the emergency room where physical examination revealed tenderness in the left upper quadrant and left lower quadrant pain and there was no rebound tenderness, no distention of the abdomen. Bowel movement yesterday. Sounds were hyperactive to active. There is no rebound tenderness. The patient was practically afebrile with normal WBC count. ASSESSMENT: 1. Epiploic appendagitis involving sigmoid colon. PLAN: 1. Give IV Flagyl and Levofloxacin. The patient says that she has been feeling somewhat hungry which is a good sign. She had not eaten anything all day. I examined the patient at approximately 8:30 p.m. in the emergency room. CONDITION: Stable. TIME SPENT: More than 30 minutes. Plan and coordination of the patient's care discussed in the presence of nurse. REESE
[2021-04-23 11:59] VITALS: BP 104/68; TEMP 97.6
--- NOTE | 2021-04-23 12:13 | CM.DICTOOL ---
ADMISSION: 04/21/21 21:16 DISCHARGE: 2020 DATE OF SERVICE: 04/23/21 FINAL DIAGNOSIS EPIPLOIC APPENDAGITIS ABDOMINAL PAIN DIVERTICULOSIS PER CT ANXIETY GERD SINUSITIS LEFT ORBITAL FLOOR FRACTURE (CT 2016) HYPERTROPHY NASAL TURBINATE WITH RESECTION (04/2020) DR. PATEL LAST VITALS Temp Pulse Resp BP Pulse Ox 98.8 F 100 H 18 111/79 99 04/23/21 05:32 04/23/21 05:32 04/23/21 05:32 04/23/21 05:32 04/23/21 05:32 TAKE THESE MEDICATIONS AT HOME Metronidazole (FLAGYL) 500 MG BID FOR 5 DAYS (NEW RX) Last Admin: 04/23/21 05:07 Dose: 100 mls/hr Documented by: Levofloxacin (LEVAQUIN) 250 MG DAILY FOR 5 DAYS (NEW RX) Documented by: Lamotrigine (Lamotrigine 25 Mg Tablet) 300 mg PO BEDTIME [facility] Last Admin: 04/22/21 20:45 Dose: 300 mg Documented by: Pantoprazole Sodium (Pantoprazole Sodium 40 Mg Tablet.) 40 mg PO DAILY AC [facility] Last Admin: 04/23/21 06:06 Dose: 40 mg Documented by: Quetiapine Fumarate (Quetiapine Fumarate 100 Mg Tablet) 200 mg PO BEDTIME [facility] Last Admin: 04/22/21 20:45 Dose: 200 mg Documented by: Trazodone HCl (Trazodone Hcl 50 Mg Tablet) 50 - 100 mg PO BEDTIME PRN PRN Reason: Insomnia BUSPAR 5 MG PO PRN COLACE 100 MG BID PRN CONSTIPATION (NEW RX) TRAMADOL 50 MG TID PRN X 7 DAYS (NEW RX) ALLERGIES No Known Allergies Allergy (Verified 02/04/21 17:57) DISCONTINUED MEDICATIONS NONE NEW PRESCRIPTIONS: COLACE 100 MG BID PRN CONSTIPATION LEVAQUIN 250 MG DAILY FOR 5 DAYS FLAGYL 500 MG BID FOR 5 DAYS TRAMADOL 50 MG TID PRN PAIN FOR 7 DAYS SMOKING: NOT APPLICABLE DISEASE SPECIFIC EDUCATION: DIAGNOSIS NEW MEDICATIONS DIET APPOINTMENT LAB REVIEW: 04/23/21 04:08 04/23/21 04:08 04/23/21 04:08: Sodium 140.5, Potassium 3.91, Chloride 106.7, Carbon Dioxide 26.9, Anion Gap 10.81, BUN 5.8 L, Creatinine 0.65, Estimated GFR (MDRD) 106.00, BUN/Creatinine Ratio 8.92, Glucose 96.3, Calcium 8.73, Total Bilirubin 0.28, AST 19.8, ALT 13.4, Alkaline Phosphatase 72.0, Total Protein 6.16 L, Albumin 3.66, Globulin 2.50, Albumin/Globulin Ratio 1.46 04/23/21 04:08: WBC 4.63, RBC 3.97 L, Hgb 12.0, Hct 37.2, MCV 93.7, MCH 30.2, MCHC 32.3, RDW Coeff of Amy 12.9, Plt Count 240, Immature Gran % (Auto) 0.2, Neut % (Auto) 59.8, Lymph % (Auto) 27.0, [place] % (Auto) 11.7 H, Eos % (Auto) 0.9, Baso % (Auto) 0.4, Neut # (Auto) 2.8, Lymph # (Auto) 1.3, [place] # (Auto) 0.5, Eos # (Auto) 0.0, Baso # (Auto) 0.0, Immature Gran # (Auto) 0.0 PLAN: DISCHARGE HOME DIET: BLAND DIET, 6 SMALL MEALS NO MILK PRODUCTS ACTIVITY: GRADUALLY RESUME ACTIVITY TOLERATED AN APPOINTMENT IS SCHEDULED WITH DR. TIRADO/JOSEPH FIGUEROA APRN/LITO TOWNSEND APRN ON AT 11:30 AM CODE STATUS: FULL CODE MRS. BERNAL IS ALERT AND ORIENTED X 4. SHE IS REQUESTING DISCHARGE TODAY; STATING THAT HER PAIN IS MODERATE. SHE IS AGREEABLE TO DISCHARGE PLANS. SHE LIVES AT HOME WITH HER SPOUSE AND CHILDREN. MRS. BERNAL IS INDEPENDENT WITH ALL ACTIVITIES OF DAILY LIVING. SHE IS TOLERATING A SOFT DIET. NO NAUSEA REPORTED. SHE REPORTS MILD ABDOMINAL PAIN. LAST STOOL WAS SMALL AND LIQUID AFTER DULCOLAX SUPPOSITORY ADMINISTERED YESTERDAY. SHE IS AMBULATORY IN THE ROOM PER SELF. NO ASSISTIVE DEVICE IS REQUIRED FOR AMBULATION. NO STAFF ASSISTANCE REQUIRED. MD JOSEPH MIJARES APRN
--- NOTE | 2021-04-23 12:48 | PN ---
DATE OF SERVICE: 04/22/21 SUBJECTIVE: 30-year-old white female hospitalized with left-sided abdominal pain upper and lower quadrant for 4 to 5 days duration. The patient had on CT scan epiploic appendagitis. The patient is on Flagyl and Levaquin. Condition seems to have improved. She is hungry. Soft diet. She is up and about, still constipated. She had required one pain shot with Dilaudid and Toradol. REVIEW OF SYSTEMS: CONSTITUTIONAL: No night sweats. No fatigue, malaise, lethargy. No fever or chills. HEENT: Eyes: No visual changes. No eye pain. No eye discharge. ENT: No runny nose. No epistaxis. No sinus pain. No sore throat. No odynophagia. No congestion. RESPIRATORY: No cough, no congestion. No hemoptysis. No shortness of breath. CARDIOVASCULAR: No angina symptoms. No CHF symptoms. No atypical chest pain for CAD. No palpitations. No PND. No orthopnea. GASTROINTESTINAL: Pain is much less 2 to 3 on scale of 1 to 10. No nausea or vomiting. No diarrhea or constipation. No hematemesis. No hematochezia. GENITOURINARY: No urgency. No frequency. No dysuria. No hematuria. No obstructive symptoms. No discharge. No pain. No significant abnormal bleeding. MUSCULOSKELETAL: No musculoskeletal pain; no joint swelling. NEUROLOGICAL: No headache. No neck pain. No syncope. No seizures. No dizziness. PSYCHIATRIC: Not anxious. No depression. No suicidal thoughts. No homicidal thoughts. SKIN: No rash. No lesions. No wounds. ENDOCRINE: No unexplained weight loss. No weight gain. HEMATOLOGIC/LYMPHATIC: No anemia. No purpura. No petechiae. No prolonged or excessive bleeding. No palpable lymph nodes. PHYSICAL EXAMINATION: VITAL SIGNS: Temperature 97.8, pulse 74, respiratory rate 18, BP 90/58, pulse ox 99%. HEENT: Head normocephalic, atraumatic. Eyes: Extraocular muscles are intact. Pupils are equal, round and reactive to light and accommodation. Ears: No lesions. Nose appeared normal. Throat: No exudate or erythema. NECK: Supple. No JVD, no carotid bruit. No lymphadenopathy or thyromegaly. LUNGS: Decreased breath sounds and clear to auscultation. Percussion note normal. Chest symmetrical. HEART: S1, S2, no S3. No murmurs. No cyanosis or clubbing. No ascites. Pulses: Dorsalis pedis and posterior tibial pulses +1 to +2 bilaterally. ABDOMEN: Soft. Nontender. Bowel sounds active. No CVA tenderness. No mass felt. EXTREMITIES: No edema. Full range of motion of all extremities, equal. NEUROLOGIC: No focal deficit. Cranial nerves II through XII are grossly intact. No headache. No double vision. SKIN: Not dry. Intact. Turgor - normal. LYMPHATIC: No palpable lymph nodes/no lymphedema. MUSCULOSKELETAL: Normal joints with no swelling. Muscle tone is normal. LABS: Hemoglobin 13, hematocrit 40, WBC 4,800, normal differential. Creatinine 0.5, BUN 8, potassium 3.8. ASSESSMENT: 1. Epipolic appendagitis of sigmoid colon resolving clinically. 2. Dehydration. PLAN: 1. IV fluids 70 cc/hr. 2. Encourage the patient to eat soft diet. 3. For constipation Dulcolax suppository and Milk of Magnesia 30 cc. CONDITION: Stable. TIME SPENT: More than 30 minutes. Plan and coordination of the patient's care discussed in the presence of nurse. REESE
--- NOTE | 2021-04-24 07:51 | HP ---
DATE OF SERVICE: 04/21/21 HISTORY OF PRESENT ILLNESS: 30-year-old white female who presents to the emergency room with abdominal pain, mid epigastric to left quadrant. No nausea. No vomiting. PAST MEDICAL HISTORY: History of elevated liver function - she was referred and saw Dr. Elizalde in October GERD Mild dyslipidemia Migraine headaches Insomnia and depression for which she sees Dr. Hopkins Hiatal hernia per EGD - she had an EGD in October Urinary frequency - she sees Dr. Contreras every 3 months PAST SURGICAL HISTORY: section Former smoker REVIEW OF SYSTEMS: CONSTITUTIONAL: No night sweats. No fatigue, malaise, lethargy. No fever or chills. HEENT: Eyes: No visual changes. No eye pain. No eye discharge. ENT: No runny nose. No epistaxis. No sinus pain. No sore throat. No odynophagia. No ear pain. No congestion. RESPIRATORY: No cough, no congestion. No hemoptysis. No shortness of breath. CARDIOVASCULAR: No angina symptoms. No CHF symptoms. No atypical chest pain for CAD. No palpitations. No PND. No orthopnea. GASTROINTESTINAL: Positive for abdominal pain. No nausea or vomiting. No diarrhea or constipation. No hematemesis. No hematochezia. GENITOURINARY: No urgency. No frequency. No dysuria. No hematuria. No obstructive symptoms. No discharge. No pain. No significant abnormal bleeding. MUSCULOSKELETAL: No musculoskeletal pain. No joint swelling. No arthritis. NEUROLOGICAL: No headache. No neck pain. No syncope. No seizures. No dizziness. PSYCHIATRIC: Not anxious. No depression. No suicidal thoughts. No homicidal thoughts. SKIN: No rash. No lesions. No wounds. ENDOCRINE: No unexplained weight loss. No weight gain. HEMATOLOGIC/LYMPHATIC: No anemia. No purpura. No petechiae. No prolonged or excessive bleeding. No palpable lymph nodes. PERSONAL/FAMILY/SOCIAL HISTORY: She is . 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 Former smoker. Denies any alcohol or ilicit drug use. MEDICATIONS: Trazodone 50 mg p.o. bedtime p.r.n. Quetiapine 200 mg p.o. bedtime Pantoprazole 40 mg p.o. daily Lamotrigine 300 mg p.o. bedtime Buspirone 5 mg p.o. p.r.n. ALLERGIES: NKDA PHYSICAL EXAMINATION: VITAL SIGNS: Temperature 98.6, heart rate 107, respirations 16, BP 116/82, pulse ox 98%. HEENT: Head normocephalic, atraumatic. Eyes: Extraocular muscles are intact. Pupils are equal, round and reactive to light and accommodation. Ears: No lesions. Nose appeared normal. Throat: No exudate or erythema. NECK: Supple. No JVD, no carotid bruit. No lymphadenopathy or thyromegaly. LUNGS: Clear to auscultation. Percussion note normal. Chest symmetrical. HEART: S1, S2, no S3. No murmur. No cyanosis or clubbing. No ascites. Pulses: Dorsalis pedis and posterior tibial pulses +1 to +2 bilaterally. ABDOMEN: Soft. Mild tenderness mid to left epigastric region. Bowel sounds active. No CVA tenderness. No mass felt. EXTREMITIES: No edema. Full range of motion of all extremities, equal. NEUROLOGIC: No focal deficit. Cranial nerves II through XII are grossly intact. No headache, no double vision or headache. SKIN: Not dry. Intact. Turgor - normal. LYMPHATIC: No palpable lymph nodes/no lymphedema. MUSCULOSKELETAL: Normal joints with no swelling. Muscle tone is normal. LABS/IMAGING: White count 6.34, hemoglobin 13.5, hematocrit 41.2, platelets 277. Sodium 141, potassium 3.5, BUN 9, creatinine 0.7, glucose 84. Urine is normal. Lactic acid is normal. Respiratory PCR is normal. PT of the abdomen and pelvis shows epiploic appendagitis in the descending colon. Chest x-ray is normal. ASSESSMENT: 1. EPIPLOIC APPENDAGITIS OF THE DESCENDING COLON 2. ABDOMINAL PAIN PLAN: 1. We will admit. 2. Routine telemetry orders. 3. CBC, CMP daily. 4. Start Flagyl 500 mg IV q.8hr. 5. Start Levaquin 250 mg IV daily. 6. Continue home medications. 7. Zofran 4 mg IV q.6hr p.r.n. for nausea. 8. Toradol 15 mg IV q.6hr p.r.n. for pain. 9. Dilaudid 2 mg IV q.6hr p.r.n. for pain. 10. Normal Saline IV at 75 cc/hr. An attempt to transfer the patient was made. The patient was not accepted anywhere. GI at [facility] confirmed that this was not a surgical abdomen and it was a self-limiting condition. The patient agrees to be admitted. Will follow closely. TIME SPENT: More than 70 minutes. REESE
--- NOTE | 2021-04-24 13:56 | PN ---
DATE OF SERVICE: 04/23/2021 SUBJECTIVE: The patient was seen and examined with the Nurse Practitioner. The patient's condition has improved. She is eating better, pain is much less. She hasn't taken any pain medication for last 8-9 hours. She wants to go home. We will discharge her home on Levaquin and Flagyl. Diagnosis discussed with her. The patient was seen and examined with the Nurse Practitioner. TIME SPENT: More than 30 minutes. Plan and coordination of the patient's care discussed in the presence of nurse. REESE
--- NOTE | 2021-04-24 13:57 | PN ---
04/21/2021: Level 5 04/22/2021: Intermediate 04/23/2021: D as in discharge MTDD
== END 2021-04-23 13:25 | disposition home or self-care (01) | DRG 372 ==
LOC: MEDSURG A 12:44 → ED 12:44 → OBSVTOIN 21:16 → MEDSURG A 22:56
PROVIDERS: ADMIT Internal Medicine; ATTEND Internal Medicine